=== PATIENT | female | born 1960 | race Caucasian/White ===

== ENCOUNTER 2023-04-15 17:15 | Inpatient (IN) | payer OTHER, SELFPAY ==
[2023-04-15] VITALS (32 sets, daily range): BP systolic 147–177; BP diastolic 60–88; PULSE 93–106; RESP 19–35; TEMP 36.2–36.6; O2SAT 94–98
--- NOTE | ~2023-04-15 | CT_ITS ---
EXAMINATION: CTA brain carotid DATE: 04/17/2023 10:51 INDICATION: Left-sided weakness TECHNIQUE: Computed tomographic angiography (CTA) of the head was performed without and with 100 mL O mnipaque-350 intravenous contrast. CTA of the neck was performed with intravenous contrast. The dose- length product was 1751.82 mGy-cm. Maximum intensity projection and volume rendered 3D-reconstruction s were created by the technologist on a separate workstation. Automated exposure control and iterativ e reconstruction technique were employed. COMPARISON: 04/15/2023; MRI, 04/16/2023 FINDINGS: HEAD CTA: There is no intracranial hemorrhage, acute infarction, or abnormal mass lesion. Punctate fo ci of restricted diffusion seen on the comparison MRI are not well demonstrated. There is an old infa rct of the left caudate. The ventricles are normal. There is no abnormal mass effect or midline shift . The dubose-white matter differentiation is normal. The basal cisterns are patent. The orbits are norm al. The paranasal sinuses, mastoids and calvarium are normal. A focal calcification is noted in the r ight basal ganglia. There is no significant stenosis of the basilar artery or posterior cerebral arteries. There is no si gnificant stenosis of the intracranial internal carotid arteries or the anterior or middle cerebral a rteries. The anterior communicating artery and posterior communicating arteries are normal. There is no aneurysm. NECK CTA: The thyroid gland is unremarkable. The submandibular and parotid glands are symmetric. Ther e is no lymphadenopathy. There are no masses identified. The airway is unremarkable. The superior med iastinum is unremarkable. There is mild cervical spondylosis. Soft tissue gas is noted in the left sh oulder musculature, discussed in further detail on shoulder CT. There is 0% stenosis of the proximal right internal carotid artery relative to normal distal artery l umen diameter (NASCET criteria). There is 0% stenosis of the proximal left internal carotid artery re lative to normal distal artery lumen diameter. IMPRESSION: 1. No acute intracranial abnormality. Normal head CTA. 2. 0% stenosis of the proximal right internal carotid artery relative to normal distal artery lumen d iameter (NASCET criteria). 3. 0% stenosis of the proximal left internal carotid artery relative to normal distal artery lumen di ameter. Reviewed, dictated and finalized at location F. UCTION ESTIMATOR IMPRESSION: 1. No acute intracranial abnormality. Normal head CTA. 2. 0% stenosis of the proximal right internal carotid artery relative to normal distal artery lumen diameter (NASCET criteria). 3. 0% stenosis of the proximal left internal carotid artery relative to normal distal artery lumen diameter.
--- NOTE | ~2023-04-15 | US_ITS ---
EXAMINATION: US shoulder asp inj w image LT DATE: 04/16/2023 18:57 INDICATION: Bacteremia and suspected left shoulder septic arthritis TECHNIQUE: The procedure including the risks and benefits was discussed with the patient. Risks discu ssed included bleeding, allergic reaction and infection. The patient understood the risks and agreed to proceed. The skin overlying the posterior left shoulder was prepped and draped in usual sterile f ashion. Anesthetic was administered with 1% lidocaine subcutaneously. An 20 gauge spinal needle was advanced under continuous ultrasound observation into the minimal amount of fluid in the posterior r ecess of the glenohumeral joint. 0.5 mm of opaque purulent appearing reddish-nicole fluid was aspirated and sent to the lab for Gram stain and cultures. Post procedure ultrasound demonstrated no hemorrha ge. There was insufficient fluid within the joint space to allow for the initially planned drainage c atheter placement. FINDINGS: Ultrasound images demonstrate the needle within a very small left glenohumeral joint effusi on. There is prominent edema in the surrounding soft tissues. IMPRESSION: 1. Successful Ultrasound-guided aspiration of a 1.5 mL of bloody purulent appearing fluid concerning for septic arthritis which was sent to the lab for Gram stain and cultures. Reviewed, dictated and finalized at location A. MOTIVE DIAGNOSTIC TECHNICIAN IMPRESSION: 1. Successful Ultrasound-guided aspiration of a 1.5 mL of bloody purulent appea ring fluid concerning for septic arthritis which was sent to the lab for Gram s tain and cultures.
--- NOTE | ~2023-04-15 | CT_ITS ---
EXAMINATION: CT abdomen pelvis w con DATE: 04/15/2023 20:15 INDICATION: UTI, leukocytosis, sepsis TECHNIQUE: Computed tomography (CT) of the abdomen and pelvis was performed with 100 mL Omnipaque-350 intravenous contrast. Automated exposure control and iterative reconstruction technique were employe d. The dose-length product was 1684.23 mGy-cm. COMPARISON: None. FINDINGS: Lower thorax: Cardiomegaly. Mitral calcification. Bibasilar scar/atelectasis. Liver: Hepatomegaly. Biliary/Gallbladder: Gallbladder is absent. No bile duct dilation. Pancreas: Mild fatty atrophy. Spleen: Normal. Adrenals:No mass. Kidneys: No suspicious mass, obstructing stone, or hydronephrosis. GI tract: Mild antral wall edema. No small or large bowel dilation. Normal appendix. Diverticulosis w ithout diverticulitis. Mesentery/Peritoneum: No ascites, mass, or free air. Retroperitoneum: No mass. Pelvis: Normal uterus. Mild urinary bladder wall thickening in a partially distended bladder. Small f luid collection at the distal urethra may represent urine leakage or small urethral diverticulum, alt mary it does not appearing capsulated. Soft Tissues: Moderate, inflamed fat-containing infraumbilical ventral abdominal wall hernia. Bones: No acute osseous finding. IMPRESSION: Mild antral gastritis. Hepatomegaly. Possible cystitis. Inflamed fat-containing infraumbilical ventral hernia. Reviewed, dictated and finalized at location K. RANCE CLAIMS CLERK
--- NOTE | ~2023-04-15 | CT_ITS ---
EXAMINATION: CT shoulder LT wo con INDICATION: Edema and cellulitis of the left shoulder TECHNIQUE: Computed tomographic images of the abdomen and pelvis were obtained after the administrati on of 100 cc of Omnipaque 350 intravenous contrast. The dose-length product (DLP) was 475.90 mGy-cm. Automated exposure control and iterative reconstruction technique were employed. COMPARISON: None FINDINGS: Bone alignment is normal. There is no fracture. 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 There is widespread soft tiss ue gas in the subscapular region, the deltoid, the pectoralis, and tracking into the partially imaged bicep. IMPRESSION: 1. Findings concerning for intramuscular abscesses involving the left shoulder musculature as detaile d above, likely spreading from septic joint. Reviewed, dictated and finalized at location F. ER CARE CASE MANAGER IMPRESSION: 1. Findings concerning for intramuscular abscesses involving the left shoulder musculature as detailed above, likely spreading from septic joint.
--- NOTE | ~2023-04-15 | US_ITS ---
EXAMINATION: US venous doppler UE DATE: 04/15/2023 19:51 INDICATION: edema, erythema . TECHNIQUE: Grayscale ultrasound images without and with compression and Doppler ultrasound images of the upper extremity veins were obtained. COMPARISON: None. FINDINGS: The visualized portions of the left internal jugular vein, subclavian vein, axillary vein, brachial v eins, basilic vein, and cephalic vein are patent. The left radial and ulnar veins were not visualized . IMPRESSION: The left radial and ulnar veins were not visualized No deep venous thrombosis in the remaining visualized left upper extremity veins. Reviewed, dictated and finalized at location K. DRESSER IMPRESSION: The left radial and ulnar veins were not visualized No deep venous thrombosis in the remaining visualized left upper extremity vein s.
--- NOTE | ~2023-04-15 | MR_ITS ---
EXAMINATION: MR cervical spine wo/w con DATE: 04/16/2023 17:04 INDICATION: Left-sided weakness TECHNIQUE: Magnetic resonance imaging (MRI) of the cervical spine was performed without and with 20 m L Multihance intravenous contrast. Sequences included sagittal T2-weighted FSE, sagittal T2-weighted FS FSE, sagittal T1-weighted FSE, axial T2-weighted FSE, and axial T1-weighted SE. Postcontrast seque nces included sagittal T1-weighted FS FSE, and axial T1-weighted FS SE. Additional coronal T2-weighte d FS FSE was obtained with the [id number] shifted further towards the left shoulder. COMPARISON: None FINDINGS: There is some motion artifact on multiple sequences which moderately limits evaluation. Straightening of the normal cervical lordosis. Vertebral body heights are normal. There is mild disc height loss a t C3-C4 and moderate disc height loss at C4-C5 and C5-C6. Bone marrow signal intensity in the cervic al spine is normal. Cord signal intensity is normal. No abnormally enhancing spinal lesions. The foll owing disc levels are specifically discussed: C2-C3: The disc does not extend beyond the endplate margin. There is no uncovertebral joint osteoarth ritis. There is mild bilateral facet joint osteoarthritis. There is no neural foraminal stenosis. The re is no central canal stenosis. C3-C4: Disc is bulging. There is mild bilateral uncovertebral joint osteoarthritis. There is mild joseph ateral facet joint osteoarthritis. There is no neural foraminal stenosis. There is mild central canal stenosis with flattening of the ventral surface of the cord. C4-C5: Disc is bulging. There is moderate left and severe right uncovertebral joint osteoarthritis. T here is moderate bilateral facet joint osteoarthritis. There is mild bilateral neural foraminal steno sis. There is mild central canal stenosis with flattening of the ventral surface of the cord. C5-C6: Disc is bulging. There is moderate bilateral uncovertebral joint osteoarthritis. There is mode rate bilateral facet joint osteoarthritis. There is mild left and moderate right neural foraminal radha nosis. There is mild central canal stenosis with flattening of the ventral surface of the cord. C6-C7: The disc does not extend beyond the endplate margin. There is no uncovertebral joint osteoarth ritis. There is mild to moderate bilateral facet joint osteoarthritis. There is no neural foraminal s tenosis. There is no central canal stenosis. C7-T1: The disc does not extend beyond the endplate margin. There is no uncovertebral joint osteoarth ritis. There is moderate bilateral facet joint osteoarthritis. There is mild left neural foraminal st enosis. There is no central canal stenosis. In the limited visualization of the left shoulder there is prominent increased fluid signal throughou t the musculature of the left shoulder girdle suspicious for myositis. There are more focal small per ipherally enhancing fluid collections within the deep aspect of the subscapularis muscle belly along the anterior margin of the scapula suspicious for intramuscular abscesses. On the larger [id number] images there is a small left glenohumeral joint effusion suspicious for septic arthritis. There is some nonspecific patchy increased T2 signal within the proximal humerus which most likely reactive al though could not absolutely exclude developing osteomyelitis although no evident cortical erosions ar e identified. IMPRESSION: 1. Evaluation of the cervical spine moderately limited by motion artifact on multiple sequences. 2. Moderate cervical spondylosis with no abnormally enhancing lesions in the cervical spinal cord. 3. Findings of the left shoulder is not diagnostically evaluated but which include suspicion for sept ic arthritis and extensive surrounding myositis of the shoulder girdle including likely intramuscular abscesses within the deep subscapularis muscle.
--- NOTE | ~2023-04-15 | US_ITS ---
EXAMINATION: US venous doppler UE DATE: 04/21/2023 16:01 INDICATION: Left upper extremity edema TECHNIQUE: Laguerre scale images with and without compression and Doppler images of the left upper extrem ity veins were obtained. COMPARISON: None. FINDINGS: The left internal jugular vein, subclavian vein, axillary vein, brachial veins, cephalic vein, radial vein, and ulnar vein are patent. There is superficial venous thrombosis of the distal aspect of the left basilic vein. IMPRESSION: 1. Superficial venous thrombosis of the left basilic vein. Reviewed, dictated and finalized at location B. ER BAKER
--- NOTE | ~2023-04-15 | MR_ITS ---
EXAMINATION: MR brain/brain stem wo/w con DATE: 04/16/2023 17:04 INDICATION: left sidede weakness TECHNIQUE: Magnetic resonance imaging (MRI) of the brain and brainstem was performed without intraven ous contrast. Sequences included sagittal and axial T1-weighted SE, axial diffusion-weighted FS EPI A SSET, axial T2*-weighted GRE, axial T2-weighted FLAIR Propeller, and axial T2-weighted Propeller. Pos tcontrast axial and coronal T1-weighted SE was obtained. Apparent diffusion coefficient (ADC) maps we re created. COMPARISON: None. FINDINGS: Scattered punctate foci of restricted diffusion involving subcortical white matter and cortex in the bilateral frontal lobes, the left external capsule, and right parietal cortex. No MRI evidence of hem orrhage or extra-axial collection. Focal susceptibility artifact in the right basal ganglia correlati ng with calcifications in the prior CT. Punctate susceptibility artifact in the right parietal lobe m ay represent prior microhemorrhage or early calcification.. Scattered foci of white matter hyperinten sity, likely representing mild small vessel ischemic disease. No evidence of advanced or lobar predom inant parenchymal volume loss. The basilar cisterns are patent. Flow voids are preserved. Paranasal s inuses are within normal limits. Globes and orbital contents are within normal limits. Postcontrast i mages are limited by motion but no definite abnormal enhancing lesions detected. IMPRESSION: Multifocal punctate areas of restricted diffusion likely representing focal infarcts, with embolic et iology. Reviewed, dictated and finalized at location K. STILL RUNNER COMPOUNDER IMPRESSION: Multifocal punctate areas of restricted diffusion likely representing focal inf arcts, with embolic etiology.
--- NOTE | ~2023-04-15 | CT_ITS ---
EXAMINATION: CT brain wo con DATE: 04/15/2023 19:02 INDICATION: AMS . TECHNIQUE: Computed tomography (CT) of the head was performed without intravenous contrast. The mA wa s adjusted according to patient size. Iterative reconstruction technique was employed. The dose-lengt h product was 605.33 mGy-cm. COMPARISON: None. FINDINGS: No acute intracranial hemorrhage or extra-axial fluid collection. No hydrocephalus, mass, or herniation. No acute ischemic infarct. Unremarkable dural venous sinus attenuation. No acute osseous abnormality. The aerated spaces are clear. Right basal ganglia calcification. Prominent bifrontal extra-axial spaces IMPRESSION: No acute intracranial process. Reviewed, dictated and finalized at location K. P BURNER
--- NOTE | ~2023-04-15 | XR_ITS ---
EXAMINATION: XR chest 2V Exam Date/Time: 04/15/2023 19:54 TURBINE ENGINEER HISTORY: leukocytosis; non smoker, DM Comparison: 01/10/2007. RESULT: Lines, tubes, and devices: None. Lungs and pleura: Clear. Cardiomediastinal silhouette: Stable. Other: No acute osseous or upper abdominal finding. IMPRESSION: No acute cardiopulmonary process. Reviewed, dictated and finalized at location K. INE ENGINEER
[2023-04-15 17:32] LABS: Glucose Point of Care > 500 mg/dl (65-105)
[2023-04-15 18:02] LABS: Hematocrit 35.1 % (37.0-47.0); Hemoglobin 11.9 g/dL (12.0-15.0); Mean Corpuscular HGB Conc 33.9 g/dl (32-36); Mean Corpuscular Hemoglobin 29.4 pg (26-34); Mean Corpuscular Volume 86.7 fl (80-100); Mean Platelet Volume 11.2 fl (7.4-10.4); Platelet Count Result 424 k/mm3 (150-375); Red Blood Count 4.05 M/mm3 (4.2-5.4); White Blood Count 22.3 K/mm3 (4.5-10.0)
[2023-04-15 18:12] LABS: Lactic Acid Reflex 2.6 mmol/L (0.7-2.0)
[2023-04-15 18:19] LABS: Beta-Hydroxybutyrate/Acetoacetate 3.53 mmol/L (0.02-0.27)
[2023-04-15 18:22] LABS: Band Neutrophils Percent 17 % (0-6); Lymphocytes Absolute Manual 1.11 K/mm3 (1.1-4.5); Lymphocytes Percent Manual 5 % (18-44); Metamyelocytes Percent 1 %; Monocytes Absolute Manual 0.44 K/mm3 (0.1-0.90); Monocytes Percent Manual 2 % (3-9); Myelocytes Percent 1 %; Neutrophils Absolute Manual 20.29 K/mm3 (1.7-7.2); Neutrophils Percent Manual 74 % (46-73); Platelet Estimate Increased (Adequate); Total Cells Counted 100
[2023-04-15 18:23] LABS: Schistocytes None Seen (NORMAL)
[2023-04-15] MEDS: SODIUM CHLORIDE 0.9% IV 1,000 ML 999 ML IV CONT ×2 (18:29→20:22)
--- NOTE | 2023-04-15 18:30 | ED.WEAKNESS ---
HPI - Weakness General Chief complaint: Weakness Stated complaint: mult complaints Time Seen by Provider: 04/15/23 17:45 Source: patient and EMS Mode of arrival: EMS Limitations: no limitations History of Present Illness HPI Narrative: This is a 62 year old female that presents to the ER for generalized weakness. Worsening over the last several weeks. Associated with focal left foot weakness. Reports she feels like her foot gives out on her when she walks. Reports she has noted redness and swelling of her left upper arm. She has been taking Ibuprofen for this. Reports no past medical history, although she has not been to the doctor in about 9 years. Does report family history of diabetes. Reports hematuria. Denies fever, abdominal pain, vomiting or dysuria. Related Data Allergies Allergy/AdvReac Type Severity Reaction Status Date / Time No Known Allergies Allergy Unverified 04/15/23 17:27 Review of Systems Review of Systems: CONSTITUTIONAL: Denies fever EYES: Denies visual changes CARDIOVASCULAR: Denies chest pain RESPIRATORY: Denies cough or dyspnea. GASTROINTESTINAL: Denies abdominal pain, nausea, vomiting GENITOURINARY: Denies dysuria. Reports hematuria. NEUROLOGIC: Reports weakness. All systems reviewed & are unremarkable except as noted in HPI and below PMFSH Social History Social History (Updated 04/15/23 @ 18:57 by Luna Pelletier PA-C) Smoking status: Never smoker Exam Narrative: GENERAL: Ill-appearing, well-nourished, and in no acute distress. HEAD: Normocephalic, atraumatic. EYES: PERRLA and EOMI. ENT: Nares clear, no rhinorrhea or epistaxis. Mucous membranes moist. Oropharynx without tonsillar hypertrophy exudate or other lesions. Bilateral TMs pearly dubose non-bulging NECK: Supple. No adenopathy or masses. CHEST: Clear to auscultation. No respiratory distress. No wheezes rales or rhonchi HEART: Regular rate and rhythm. No murmur heard. Normal peripheral pulses. ABDOMEN: Soft, nontender, nondistended, normal active bowel sounds. EXTREMITIES: Normal range of motion. No edema. Strength equal in bilateral upper extremities (5/5). Strength decreased in left foot plantar flexion (4/5), otherwise strength is equal in bilateral lower extremities (5/5) SKIN: Warm, dry, no rash. NEURO: No focal deficits. Alert and oriented x3. Cranial nerves 2-12 grossly intact PSYCH: Normal mood and affect Course Course Emergency Course: Patient and family updated on workup and need for admission Consultations Consultation #1: Spoke with hospitalist about patient and workup who accepts admission. Patient will go to the IMU Date: 04/15/23 Vital Signs Vital signs: Vital Signs Temperature 97.9 F 04/15/23 17:16 Pulse Rate 106 H 04/15/23 17:16 Respiratory Rate 30 H 04/15/23 17:16 Blood Pressure 147/66 H 04/15/23 17:16 Pulse Oximetry 98 04/15/23 17:16 Oxygen Delivery Room Air 04/15/23 17:16 Temperature 97.9 F 04/15/23 17:16 Pulse Rate 98 04/15/23 20:25 Respiratory Rate 31 H 04/15/23 20:25 Blood Pressure 161/72 H 04/15/23 20:25 Pulse Oximetry 96 04/15/23 20:25 Oxygen Delivery Room Air 04/15/23 17:16 MDM - Weakness MDM Narrative Medical decision making narrative: Patient presents to the ER for generalized weakness. Reporting redness and swelling of the left upper arm, hematuria, left foot weakness. Reporting recent weight loss. Family history of DM. Patient had not been to the doctor in about 9 years. Blood sugar >500 on arrival. Hemoglobin A1C 11.2. CBC with leukocytosis to 22.3 with band neutrophils. Metabolic panel with blood glucose of 618. Anion gap of 19, bicarb of 19. Beta hydroxybutyrate is 3.53. ABG with pH of 7.46, pCO2 of 32 and PO2 of 58.5. UA without evidence of infection. This will be sent for culture. Blood cultures drawn and patient started on IV antibiotics. CT scan abdomen and pelvis shows findings consistent with cystitis. Chest x-ray without acute ca
[2023-04-15 18:33] LABS: Alveolar/Arterial O2 Gradient 52.9 mmHg; Base Excess ABG -0.8 mEq/l (+/-2.0); Carboxyhemoglobin 1.2 % THb (0-2.0); Fractional Inspired Oxygen 21 %; HCO3 ABG 22.2 mEq/l (22.0-26.0); Methemoglobin ABG 0.1 %THb (0-1.5); Oxygen Content ABG 16.8 %vol (16.0-22.0); Oxyhemoglobin 90.3 % THb (90.0-100.0); PO2 ABG 58.5 mmHg (80.0-100.0); PO2 FiO2 Ratio Arterial Blood 2.79 %; Reduced Hemoglobin 8.4 %THb (0-5.0); Total Hemoglobin 13.2 g/dL (12.0-18.0)
[2023-04-15 18:36] LABS: Modified Allen's Test Pass; Site Drawn RIGHT RADIAL
[2023-04-15 18:37] LABS: Erythrocyte Sedimentation Rate 56 mm/hr (0-20)
[2023-04-15 18:41] LABS: Add Urine Microscopic? YES; Appearance Urine Cloudy (Clear); Bacteria Urine 1+ /hpf; Bilirubin Urine Negative (Negative); Blood Urine 3+ (Negative); Color Urine Yellow (Yellow); Glucose Urine UA 3+ mg/dL (Negative); Ketones Urine 1+ mg/dL (Negative); Leukocyte Esterase Ur 2+ LEU/UL (Negative); Need Manual Microscopic Reviewed; Nitrate Urine Negative (Negative); Non Pathogenic Casts 0-2; Protein Urine 1+ mg/dL (Negative); RBC Urine >100 /hpf (0-2); Specific Grav Ur 1.028 (1.001-1.035); Squamous Epithelial Cell Urine Occasional /hpf (Few); WBC Urine >100 /hpf; pH Urine 5.5 (5.0-9.0)
[2023-04-15 18:45] LABS: Alanine Aminotransferase 20 U/L (6-35); Albumin Level 2.9 g/dL (3.5-5.1); Alkaline Phosphatase 239 U/L (38-126); Anion Gap 19 mmol/L (8-16); Aspartate Amino Transferase 29 U/L (14-36); Bilirubin,Total 1.6 mg/dL (0.2-1.3); Blood Urea Nitrogen 38 mg/dL (7-17); Calcium 8.8 mg/dL (8.4-10.2); Carbon Dioxide 19 mmol/L (22-30); Chloride 86 mmol/L (98-107); Estimated CRCL calculation 61 ml/min; Estimated Glomerular Filt Rate 57; Glucose 618 mg/dL (65-110); Lipase 43 U/L (23-300); Magnesium 2.4 mg/dL (1.6-2.3); Phosphorus 3.4 mg/dL (2.5-4.5); Potassium 3.6 mmol/L (3.4-5.0); Sodium 124 mmol/L (137-145)
[2023-04-15] MEDS: INSULIN HUMAN REGULAR (*BKC) 100 UNITS/ML 14 UNITS IV PUSH (19:05)
[2023-04-15 19:22] LABS: CRP 35.3 mg/dL (<1.0)
[2023-04-15 19:53] LABS: Hemoglobin A1C 11.2 % (<5.7)
--- NOTE | 2023-04-15 20:10 | PC.NURSE ---
antibiotic administration delayed due to pt being out of room for imaging.
[2023-04-15 20:19] LABS: Glucose Point of Care 449 mg/dl (65-105)
[2023-04-15 20:59] LABS: Reflex Lactic Acid Yes or No Add Lactic
[2023-04-15 21:23] LABS: Lactic Acid 2.3 mmol/L (0.7-2.0)
[2023-04-15 21:37] LABS: Alanine Aminotransferase 19 U/L (6-35); Albumin Level 2.5 g/dL (3.5-5.1); Alkaline Phosphatase 189 U/L (38-126); Anion Gap 12 mmol/L (8-16); Aspartate Amino Transferase 25 U/L (14-36); Bilirubin,Total 1.3 mg/dL (0.2-1.3); Blood Urea Nitrogen 32 mg/dL (7-17); Carbon Dioxide 22 mmol/L (22-30); Chloride 93 mmol/L (98-107); Estimated CRCL calculation 67 ml/min; Estimated Glomerular Filt Rate > 60; Glucose 428 mg/dL (65-110); Potassium 3.1 mmol/L (3.4-5.0); Sodium 127 mmol/L (137-145)
--- NOTE | 2023-04-15 23:14 | ADMGEN ---
This patient, Cami Tapia, was admitted to IMU Room 213-01 on 04/15/2023 at 2300. Patient/family oriented to hospital policies and general routines including ID bracelet, bed and alarms, visiting hours, pain management, procedures, bathroom and other care routines, personal items, smoking policy, room service/diet, and visiting hours. Information on how to activate the Rapid Response Team has been discussed. Patient/Family are encouraged to report perceived risks to care and to ask questions if they do not understand what they are told or what they should do.
[2023-04-15 23:37] LABS: Glucose Point of Care 399 mg/dl (65-105)
[2023-04-16] VITALS (16 sets, daily range): BP systolic 154–179; BP diastolic 69–74; PULSE 69–100; RESP 20–22; TEMP 36.2–36.6; O2SAT 94–97
[2023-04-16] MEDS: SODIUM CHLORIDE 0.9% IV 1,000 ML 125 ML IV CONT ×3 (00:26→14:29)
[2023-04-16] MEDS: INSULIN GLARGINE (*BKC) 100 UNITS/ML 33 UNITS SUB-Q (01:30)
[2023-04-16] MEDS: POTASSIUM CHLORIDE INJ 40 MEQ in SODIUM CHLORIDE 0.9% IV 500 ML 130 MEQ IVPB (01:30)
[2023-04-16] MEDS: traMADol HCL (*CRX) 50 MG TABLET PO (01:30)
[2023-04-16 05:24] LABS: Glucose Point of Care 417 mg/dl (65-105)
[2023-04-16] MEDS: INSULIN HUMAN REGULAR (*BKC) 100 UNITS/ML 14 UNITS SUB-Q (06:00)
[2023-04-16 07:48] LABS: Hematocrit 32.8 % (37.0-47.0); Hemoglobin 11.4 g/dL (12.0-15.0); Mean Corpuscular HGB Conc 34.8 g/dl (32-36); Mean Corpuscular Hemoglobin 30.1 pg (26-34); Mean Corpuscular Volume 86.5 fl (80-100); Platelet Count Result 388 k/mm3 (150-375); Red Blood Count 3.79 M/mm3 (4.2-5.4); Red Cell Distribution Width 14.1 % (11.5-14.5); White Blood Count 18.6 K/mm3 (4.5-10.0)
[2023-04-16 07:58] LABS: Anion Gap 10 mmol/L (8-16); Blood Urea Nitrogen 32 mg/dL (7-17); Calcium 8.2 mg/dL (8.4-10.2); Carbon Dioxide 23 mmol/L (22-30); Chloride 96 mmol/L (98-107); Estimated CRCL calculation 78 ml/min; Estimated Glomerular Filt Rate > 60; Glucose 380 mg/dL (65-110); Magnesium 2.4 mg/dL (1.6-2.3); Potassium 3.5 mmol/L (3.4-5.0); Sodium 129 mmol/L (137-145)
[2023-04-16 08:19] LABS: Glucose Point of Care 363 mg/dl (65-105)
[2023-04-16] MEDS: INSULIN ASPART (*BKC) 100 UNITS/ML SUB-Q ×4 (08:21→18:53)
[2023-04-16] MEDS: VANCOMYCIN 1,250 MG/NS 250 ML 1,250 MG/250 ML BAG 166.67 MG IVPB ×2 (10:44→14:30)
[2023-04-16 11:56] LABS: Glucose Point of Care 324 mg/dl (65-105)
--- NOTE | 2023-04-16 13:00 | PM.IMHP ---
H&P: HPI History of Present Illness Date/Time: 04/16/23 13:00 Chief Complaint: Weakness Narrative: 62yo healthy female who presents with complaints of weakness. Patient was in her normal state health until about 6 weeks ago when she had an episode difficulty walking, urine incontinence and strong smell urine. Symptoms resolved has been states patient still having some difficulty walking although improved overall. Over the past few days patient has had increasing symptoms again with bilateral lower extremity weakness worse on the left. She is having difficulty standing. She denies dysuria but was having hematuria. She mentions hematuria is been intermittent over the past few weeks. No diarrhea, nausea or vomiting. She denies abdominal pain or back pain. She did have a flu and COVID vaccine 2-3 weeks ago. No history of seizures, strokes, coronary disease or CHF. No hypertension or hyperlipidemia. No fever or chills. No chest pain or palpitations. No melena or hematochezia. No blurry vision or double vision. No odynophagia or dysphagia. She denies cough or shortness of breath. She does admit to early satiety and poor appetite. She states that she has lost a total of 130 lb since COVID started with losing 40 lb since May. She has not seen a physician since 2013. She denies numbness or tingling in her extremities. No sciatica symptoms. No history of diabetes. Mota she does have a family history of diabetes in her father. About 10 days ago she noted left upper arm ?throbbing? and noted erythema. There was no trauma or animal bites to this area. She did also have a red splotchy rash on her legs on admission but this has resolved. She mentions that she has high blood pressure that was diagnosed as ?white coat syndrome?. She denies any other symptoms. Because of the weakness that progressively worsened to the point where had difficulty getting her to stand, patient was brought to the emergency room for evaluation. In the emergency room, she was mildly tachycardic and tachypneic. Lactic acid was 2.6. test was negative. Head CT showed no acute findings. She did have right basal ganglia calcifications. Left upper extremity venous Dopplers were negative for DVT. Chest x-ray was clear. CT of the abdomen and pelvis showed mild antral gastritis, hepatomegaly, possible cystitis and inflamed fat containing infraumbilical Ventral hernia. UA was consistent with UTI. Urine cultures pending. Blood cultures collected and both have returned positive. ABG 7.46/32/59 on room air. White count was 22 K with 17% bands. Glucose was 618. Sodium 124. A1c is 11.2. LFTs elevated in the form of a bilirubin of 1.6 and alk-phos 239. She is status post cholecystectomy. Liver enzymes are improved. Anion gap is closed. She was treated with IV insulin and IV fluids. She was started on Rocephin. She was given tramadol. She was admitted for further care. Antibiotics were adjusted when blood cultures became positive. Review of Systems Review of Systems: All systems reviewed & are unremarkable except as noted in HPI and below PMFSH Past Medical History Medical History (Updated 04/16/23 @ 13:52 by Pb Matamoros MD) No pertinent past medical history Surgical History Surgical History (Updated 04/16/23 @ 13:17 by Pb Matamoros MD) S/P cholecystectomy Family History Family History Father Diabetes mellitus COPD (chronic obstructive pulmonary disease) Hypertension Mother H/O: hysterectomy Social History Social History (Updated 04/16/23 @ 13:18 by Pb Matamoros MD) Social History: Remote tobacco use history. She drinks 2-3 alcoholic drinks per month. She has dogs at home. Denies history of drug use. Full code. She nominates her to be the individual would make medical decisions for her if she is unable. Smoking packs per day: 0.5
[2023-04-16] MEDS: ASPIRIN 81 MG CHEWABLE TABLET PO (14:29)
[2023-04-16] MEDS: amLODIPine BESYLATE 2.5 MG TABLET PO (14:32)
--- NOTE | 2023-04-16 14:55 | PCCDE ---
Consult received 04/15; pt admitted 04/16 with new onset DM, UTI/cellulitis, septicemia. Ortho and neuro consults pending. Met with pt briefly; pt very tired and sts is about to have MRI. Provided diabetes book. Pt sts family hx of DM in her father. Admits to hyperglycemia sx of polyuria, polydypsia and fatigue. H&P shows pt has lost 140# since Covid. Will f/up on Friday after Thanksgiving when pt hopefully feeling better and spouse can be here.
[2023-04-16 19:13] LABS: Glucose Point of Care 352 mg/dl (65-105)
[2023-04-16 20:19] LABS: INR 1.1; Prothrombin Time 14.8 Seconds (11.1-14.7)
[2023-04-16] MEDS: cefTRIAXone 2 GM/NS 100 ML 2 GM/100 ML BAG IVPB (20:22)
[2023-04-16] MEDS: INSULIN GLARGINE (*BKC) 100 UNITS/ML 45 UNITS SUB-Q (20:32)
[2023-04-16 20:36] LABS: Glucose Point of Care 356 mg/dl (65-105)
[2023-04-17] VITALS (19 sets, daily range): BP systolic 168–203; BP diastolic 77–96; PULSE 76–97; RESP 16–22; TEMP 36.2–36.6; O2SAT 95–100
--- NOTE | 2023-04-17 00:32 | PC.NURSE ---
[facility] States she has been through enough for one day and hopefully will feel better tomorrow after some antibiotics. States she will go tomorrow.
[2023-04-17] MEDS: SODIUM CHLORIDE 0.9% IV 1,000 ML 125 ML IV CONT (03:16)
[2023-04-17] MEDS: hydrALAZINE HCL 20 MG/ML VIAL 10 MG IV PUSH (04:18)
[2023-04-17 05:34] LABS: Hemoglobin 11.1 g/dL (12.0-15.0); Mean Corpuscular HGB Conc 34.7 g/dl (32-36); Mean Corpuscular Hemoglobin 29.1 pg (26-34); Mean Platelet Volume 10.7 fl (7.4-10.4); Platelet Count Result 363 k/mm3 (150-375); Red Blood Count 3.81 M/mm3 (4.2-5.4); Red Cell Distribution Width 13.8 % (11.5-14.5); White Blood Count 16.6 K/mm3 (4.5-10.0)
[2023-04-17 05:44] LABS: Alanine Aminotransferase 17 U/L (6-35); Albumin Level 2.4 g/dL (3.5-5.1); Alkaline Phosphatase 146 U/L (38-126); Anion Gap 9 mmol/L (8-16); Aspartate Amino Transferase 26 U/L (14-36); Bilirubin,Total 0.9 mg/dL (0.2-1.3); Blood Urea Nitrogen 21 mg/dL (7-17); Carbon Dioxide 21 mmol/L (22-30); Chloride 99 mmol/L (98-107); Cholesterol 200 mg/dL (0-200); Estimated CRCL calculation 122 ml/min; Estimated Glomerular Filt Rate > 60; Glucose 308 mg/dL (65-110); HDL Direct 16 mg/dL; Magnesium 2.2 mg/dL (1.6-2.3); Phosphorus 2.4 mg/dL (2.5-4.5); Potassium 3.1 mmol/L (3.4-5.0); Sodium 129 mmol/L (137-145); Triglycerides 461 mg/dL (<150)
[2023-04-17 05:47] LABS: Lactic Acid Reflex 1.2 mmol/L (0.7-2.0)
[2023-04-17 05:53] LABS: LDL Cholesterol Direct 47 mg/dL
--- NOTE | 2023-04-17 06:15 | PC.NURSE ---
PRN hydralazine administered as ordered for bp 203/91. FU bp 192/96. Order received for one time dose of lopressor 5mg IVP.
[2023-04-17] MEDS: METOPROLOL TARTRATE INJ 5 MG/5 ML VIAL IV PUSH (06:21)
[2023-04-17 06:37] LABS: Band Neutrophils Percent 23 % (0-6); Hypochromasia 1+ (NORMAL); Lymphocytes Absolute Manual 1.99 K/mm3 (1.1-4.5); Monocytes Absolute Manual 0.83 K/mm3 (0.1-0.90); Monocytes Percent Manual 5 % (3-9); Neutrophils Absolute Manual 13.77 K/mm3 (1.7-7.2); Neutrophils Percent Manual 60 % (46-73); Schistocytes None Seen (NORMAL); Total Cells Counted 100
[2023-04-17 06:57] LABS: Folic Acid 4.3 ng/mL (2.76->20); Vitamin B12 > 1000.0 pg/mL (239-931)
--- NOTE | 2023-04-17 07:06 | PC.NURSE ---
F/U BP 172/85, pulse 76
[2023-04-17 08:23] LABS: Glucose Point of Care 280 mg/dl (65-105)
[2023-04-17] MEDS: amLODIPine BESYLATE 5 MG TABLET 10 MG PO (09:09)
[2023-04-17] MEDS: INSULIN ASPART (*BKC) 100 UNITS/ML SUB-Q ×6 (09:10→17:54)
[2023-04-17] MEDS: ASPIRIN 81 MG CHEWABLE TABLET PO (09:10)
[2023-04-17] MEDS: POTASSIUM CHLORIDE 20 MEQ ER TABLET 40 MEQ PO (09:10)
--- NOTE | 2023-04-17 10:25 | PM.CNCAR ---
Assessment and Plan Assessment and plan (1) Sepsis: Qualifiers: Sepsis acute organ dysfunction status: with acute organ dysfunction Sepsis type: sepsis due to unspecified organism Severe sepsis acute organ dysfunction type: encephalopathy Severe sepsis shock status: without septic shock Qualified Code(s): A41.9 - Sepsis, unspecified organism; R65.20 - Severe sepsis without septic shock; G93.41 - Metabolic encephalopathy Code(s): A41.9 - Sepsis, unspecified organism Status: Acute (2) Bacteremia: Code(s): R78.81 - Bacteremia Status: Acute Plan Has bacteremia + brain MRI shows multifocal punctate areas of restricted diffusion likely representing focal infarcts, with embolic etiology. Appropriate indication for CHRISTOPHER to evaluate for infective endocarditis and to rule out intracardiac thrombus. Discussed the procedure with the patient, including indication for procedure, procedure details, risks vs benefits. Patient is agreeable to proceed. Will make patient NPO at midnight and plan for CHRISTOPHER on Wednesday 04/18. Recommendations/Plan discussed with Hospitalist, Dr. Matamoros. History of Present Illness History of Present Illness Consult date/time: 04/17/23 10:25 Requesting physician: Pb Matamoros MD Consult reason: Other (CHRISTOPHER) Reason For Visit: New Onset Diabetes Mellitus/UTI/Cellulitis Narrative: We are consulted for CHRISTOPHER. This is a 62 year old female who initially presented with weakness and found with symptoms of sepsis. Blood cultures are positive for Group B streptococcus. There is concern for septic arthritis. In addition, her brain MRI shows multifocal punctate areas of restricted diffusion likely representing focal infarcts, with embolic etiology. Review of Systems Review of Systems: All systems reviewed & are unremarkable except as noted in HPI and below (HPI) [facility] Past Medical History Medical History No pertinent past medical history Surgical History Surgical History S/P cholecystectomy Family History Family History Father Diabetes mellitus COPD (chronic obstructive pulmonary disease) Hypertension Mother H/O: hysterectomy Social History Social History Social History: Remote tobacco use history. She drinks 2-3 alcoholic drinks per month. She has dogs at home. Denies history of drug use. Full code. She nominates her to be the individual would make medical decisions for her if she is unable. Smoking packs per day: 0.5 Smoking cigarettes per day: 10.0 Years smoked: 4 Smoking pack-years: 2.00 Smoking status: Former smoker Tobacco type: cigarettes Second hand tobacco smoke exposure: Yes Drinks per week: 2 Substance use: never Lack of Transportation: No Lack of Food: Never True Current Housing: I Have Housing Concerned About Future Housing: No Difficulty Paying Gas/Electric Bills: No Difficulty Paying for Meds: No Currently Unemployed: No Education: High School Diploma/GED Difficulty w/ Childcare or Family Care: No Spiritual care concerns: No Meds Home Medications and Allergies Home Medications Medication Instructions Recorded Confirmed Type No Home Medications 04/15/23 04/15/23 History Allergies Allergy/AdvReac Type Severity Reaction Status Date / Time No Known Allergies Allergy Unverified 04/15/23 17:27 Vital Signs Vital Signs - 24 hr 04/16/23 11:59 04/16/23 12:00 04/16/23 12:00 Temperature 36.2 C L Pulse Rate 69 69 100 Respiratory Rate 22 H 22 H Blood Pressure 178/71 H Pulse Oximetry 96 96 Oxygen Delivery Room Air 04/16/23 14:00 04/16/23 16:00 04/16/23 16:13 Temperature 36.5 C Pulse Rate 91 94 Respiratory Rate 20 Blood Pressure 179/73 H Pulse Oximetry 9
--- NOTE | 2023-04-17 10:39 | PM.IMPN ---
Progress Note: A&P Assessment and Plan (1) Septicemia: Code(s): A41.9 - Sepsis, unspecified organism Status: Acute Assessment and Plan: Patient presents with weakness and found to have symptoms of sepsis. Blood cultures have returned positive. Source most likely related to cellulitis but consider also from possible UTI. Given that she is bacteremic, I am concerned about septic arthritis to the left shoulder. On chest x-ray, the left shoulder joint space appears to be enlarged compared to the right. Will proceed with arthrocentesis. Ortho consult. BCx 04/15: Group B Strept in all 4 bottles. UCx 04/15: negative Started on Rocephin on admission and dose advanced to 2gm; Vancomycin added. White count is improving. Continue IV abx. Repeat BCx (2) CVA (cerebral vascular accident): Code(s): I63.9 - Cerebral infarction, unspecified Status: Acute Assessment and Plan: Patient with left-sided weakness. Concerning for CVA but we considered an inflammatory myelopathy given her recent vaccines. However family does state that she was having weakness 6 weeks ago which predates the vaccines CT head showing right basal ganglia calcification. ASA added. Brain MRI showing multifocal punctate area of restricted diffusion likely representing focal infarcts likely embolic. C-spine MRI pending. Neuro consulted. Cardiology consulted for possible CHRISTOPHER given concern for SBE. (3) Septic arthritis: Code(s): M00.9 - Pyogenic arthritis, unspecified Status: Acute Assessment and Plan: Patient underwent US guided aspiration of the left shoulder joint 04/16. Able to retrieve 1.5mL of bloody, purulent fluid concerning for septic arthritis. No lab work but gram stain positive for gram positive cocci in anaerobic culture. CT left shoulder showing tissue gas in the sub scapular region, the deltoid, the pectoralis, and tracking into the partially imaged biceps. Discussed the case with orthopedics who recommended transfer to a tertiary care center. Left UE doppler was negative for DVT Spoke with Dr. Marcus Wheat who graciously accepted the patient in transfer. Images copied underwent disc and chart will be copied as well. Patient informed of plan to transfer to tertiary care center. (4) Cellulitis: Qualifiers: Laterality: left Site of cellulitis: extremity Site of cellulitis of extremity: upper extremity Qualified Code(s): L03.114 - Cellulitis of left upper limb Code(s): L03.90 - Cellulitis, unspecified Status: Acute Assessment and Plan: Patient was the left upper arm cellulitis felt to be the source of her bacteremia. She denies that she received the vaccines in the left arm. Treatment as above. (5) Diabetes mellitus, new onset: Code(s): E11.9 - Type 2 diabetes mellitus without complications Status: Acute Assessment and Plan: A1c 11.2. Patient with newly diagnosed diabetes. She has had considerable weight loss with complaints of poor appetite and early satiety. Patient was treated with IV insulin and IV fluids. Her glucose has improved. She was started on Lantus which will continue. AccuCheks covering with sliding scale ordered. Hypoglycemia protocol will be available as needed. Advance lantus again. (6) Acute dehydration: Code(s): E86.0 - Dehydration Status: Acute Assessment and Plan: Related to the uncontrolled diabetes. Continue IV fluids. (7) Hyponatremia: Code(s): E87.1 - Hypo-osmolality and hyponatremia Status: Acute Assessment and Plan: Sodium 124 on admission related to the severe hyperglycemia. This has improved as her glucose has trended downward. Continue to follow. (8) Elevated blood pressure reading: Code(s): R03.0 - Elevated blood-pressure reading, without diagnosis of hypertension Status: Acute Assessment and Plan: Patient's blood pressure was noted to
--- NOTE | 2023-04-17 11:39 | PM.CNOR ---
Assessment and Plan Assessment and plan (1) Left shoulder pain: Qualifiers: Chronicity: acute Qualified Code(s): M25.512 - Pain in left shoulder Code(s): M25.512 - Pain in left shoulder Status: Acute Assessment and Plan: 62-year-old female with septic left shoulder. Radiology was able to aspirate some of the fluid so definitive cultures are pending but preliminary indicates strep species. Complicating all of this is the embolic brain issues resulting likely in her weakness and the uncontrolled diabetes. I think that definitive treatment for the shoulder will involve surgical debridement whether this is arthroscopic or open remains to be seen. For all these reasons I think that this patient would be best transferred to a tertiary center. Thank for the consult. History of Present Illness HPI Consult date: 04/17/23 Requesting physician: Pb Matamoros MD Chief complaint: New Onset Diabetes Mellitus/UTI/Cellulitis Narrative: 62-year-old female who I was asked see regarding her left shoulder. She states for the past several weeks she has had increasing pain in her left shoulder without any apparent injury. She has got a somewhat convoluted medical history. By report she had not been feeling well for quite some time. She has not been to see a medical doctor for close to a decade. She finally came to the emergency room and was admitted. During the workup it was determined that she has sepsis. She is currently being treated for a urinary tract infection but also has findings localized to the shoulder. Her shoulder is what she region was having trouble with. She was found to be in an uncontrolled diabetic. She is currently on vancomycin and Rocephin. Imaging studies are detailed below. In addition to all this she notes that well she had been walking recently she felt like her left ankle was rolling over in was weak on that side. Review of Systems Constitutional: Constitutional: Denies chills, Denies fever(s) and Denies night sweats Eyes: Eyes: Denies change in vision ENT: Reports Normal hearing present Cardiovascular: Cardiovascular: Denies chest pain and Denies dyspnea on exertion Respiratory: Respiratory: Denies dyspnea on exertion Gastrointestinal: Gastrointestinal: Denies abdominal pain Genitourinary: Genitourinary: Denies dysuria Musculoskeletal: Musculoskeletal: Reports as per HPI Integumentary/Breasts: Skin/Breast: Denies new lesions Neurologic: Reports Normal hearing present and Denies confusion Psychiatric: Psychiatric: Denies confusion Hematologic/Lymphatic: Hematologic/Lymphatic: Denies easy bleeding PMFSH Past Medical History Medical History Diabetes mellitus, new onset No pertinent past medical history Surgical History Surgical History S/P cholecystectomy Family History Family History Father Diabetes mellitus COPD (chronic obstructive pulmonary disease) Hypertension Mother H/O: hysterectomy Social History Social History Social History: Remote tobacco use history. She drinks 2-3 alcoholic drinks per month. She has dogs at home. Denies history of drug use. Full code. She nominates her to be the individual would make medical decisions for her if she is unable. Smoking packs per day: 0.5 Smoking cigarettes per day: 10.0 Years smoked: 4 Smoking pack-years: 2.00 Smoking status: Former smoker Tobacco type: cigarettes Second hand tobacco smoke exposure: Yes Drinks per week: 2 Substance use: never Lack of Transportation: No Lack of Food: Never True Current Housing: I Have Housing Concerned About Future Housing: No Difficulty Paying Gas/Electric Bills: No Difficulty Paying for Meds: No Currently Unemployed
[2023-04-17 12:04] LABS: Glucose Point of Care 273 mg/dl (65-105)
--- NOTE | 2023-04-17 14:48 | PC.NURSE ---
Spoke with LILIA Franklin from [facility] who reports patient has been accepted to [facility] to a medical floor. Requested face sheet be faxed to [phone].
[2023-04-17] MEDS: LOSARTAN POTASSIUM 12.5 MG TABLET PO (15:19)
[2023-04-17] MEDS: SODIUM CHLORIDE 0.9% IV 1,000 ML 50 ML IV CONT ×2 (15:19→20:55)
[2023-04-17] MEDS: ENOXAPARIN 40 MG/0.4 ML SYRINGE SUB-Q (15:19)
[2023-04-17 17:53] LABS: Glucose Point of Care 235 mg/dl (65-105)
[2023-04-17 20:43] LABS: Glucose Point of Care 315 mg/dl (65-105)
[2023-04-17] MEDS: cefTRIAXone 2 GM/NS 100 ML 2 GM/100 ML BAG IVPB (20:55)
[2023-04-17] MEDS: INSULIN GLARGINE (*BKC) 100 UNITS/ML 52 UNITS SUB-Q (20:56)
[2023-04-18] VITALS (17 sets, daily range): BP systolic 155–188; BP diastolic 70–81; PULSE 88–100; RESP 16–22; TEMP 36.2–36.8; O2SAT 95–97; BMI 38.0
--- NOTE | 2023-04-18 | ECHO_ITS ---
Patient Info Name: Cami Tapia Age: 62 years : 1960 Gender: Female Ht: 66 in Wt: 205 lbs BSA: 2.12 m2 HR: 88 bpm BP: 188 / 77 mmHg Heart Rhythm: Sinus Rhythm Technical Quality: Good Exam Date: 04/18/2023 10:35 AM Exam Location: Echo Lab Patient Status: Inpatient Admit Date: 04/16/2023 Staff Ordering Physician: Pb Matamoros MD Motor Vehicle License Clerk: Indira Haley RDCS Attending Provider: Santino Peña MD Exam Type: CA echo doppler w bubble study Study Info Indications - embolic CVA in the interm Complete two-dimensional, color flow and Doppler transthoracic echocardiogram is performed with agitated saline. Contrast/Agitated Saline Contrast/Ag. Saline: Agitated Saline Amount: 20.00 ml Summary 1. Left ventricular chamber dimension is normal. 2. Left ventricular systolic function is normal, estimated at 65-70%. 3. There is mildly increased left ventricular wall thickness. 4. The left ventricular diastolic function is grade I diastolic dysfunction. 5. Right ventricular systolic function is normal. 6. Intact interatrial septum visualized by color flow and agitated saline imaging. The bubble study is negative. 7. There is mild mitral valve regurgitation. 8. There is trace tricuspid valve regurgitation. 9. There is trace pulmonic regurgitation. 10. There is trivial anterior pericardial effusion. 11. No valvular vegetations noted on this study, however, cannot rule out. Left Ventricle Left ventricular chamber dimension is normal. Left ventricular systolic function is normal, estimated at 65-70%. There is mildly increased left ventricular wall thickness. The left ventricular diastolic function is grade I diastolic dysfunction. Right Ventricle Right ventricular chamber dimension is normal. Right ventricular systolic function is normal. Left Atria Left atrial chamber dimension is normal. Right Atria Right atrial chamber dimension is normal. Atrial Septum Intact interatrial septum visualized by color flow and agitated saline imaging. The bubble study is negative. Aortic Valve The aortic valve is probable trileaflet. There is no aortic valve stenosis. There is no aortic valve regurgitation. There is moderate aortic valve calcification. Pulmonic Valve The pulmonic valve is not well visualized. There is trace pulmonic regurgitation. Mitral Valve There is mild mitral valve regurgitation. The mitral valve annulus is mildly calcified. Tricuspid Valve There is trace tricuspid valve regurgitation. Pericardium/Pleural There is trivial anterior pericardial effusion. Inferior Vena Cava Normal inferior vena cava with >50% collapse upon inspiration consistent with normal right atrial pressure, 3 mmHg. Aorta The aortic root size at the sinus of Valsalva is normal. Left Ventricular Outflow Tract Name Value Normal LVOT 2D LVOT Diameter 2.1 cm LVOT Doppler LVOT Peak Gradient 5 mmHg LVOT Mean Gradient 4 mmHg LVOT VTI 27 cm LVOT VTI/AV VTI Ratio 1.0 LVOT Stroke Volume 96 ml LVOT CO
[2023-04-18 00:31] LABS: Glucose Point of Care 272 mg/dl (65-105)
[2023-04-18 04:36] LABS: Basophils Absolute Auto 0.1 K/mm3 (0.0-0.1); Basophils Percent Auto 0.8 % (0.2-1.2); Eosinophils Percent Auto 0.2 % (0-4.4); Hematocrit 30.2 % (37.0-47.0); Hemoglobin 10.2 g/dL (12.0-15.0); Immature Granulocyte Absolute 0.48 K/mm3 (0.00-0.031); Immature Granulocyte Percent A 3.3 % (0-0.5); Lymphocytes Absolute Auto 2.35 K/mm3 (0.9-3.2); Lymphocytes Percent Auto 16.3 % (18.3-44.2); Mean Corpuscular HGB Conc 33.8 g/dl (32-36); Mean Corpuscular Hemoglobin 29.1 pg (26-34); Mean Corpuscular Volume 86.3 fl (80-100); Mean Platelet Volume 10.4 fl (7.4-10.4); Monocytes Absolute Auto 0.9 K/mm3 (0.1-0.6); Monocytes Percent Auto 6.4 % (2.6-8.5); Neutrophils Absolute Auto 10.5 K/mm3 (1.3-6.7); Platelet Count Result 317 k/mm3 (150-375); Red Cell Distribution Width 14.4 % (11.5-14.5); White Blood Count 14.4 K/mm3 (4.5-10.0)
[2023-04-18 04:56] LABS: Vancomycin Trough 12.3 ug/mL (10.0-20.0)
[2023-04-18 04:57] LABS: Alanine Aminotransferase 19 U/L (6-35); Albumin Level 2.3 g/dL (3.5-5.1); Alkaline Phosphatase 123 U/L (38-126); Anion Gap 8 mmol/L (8-16); Aspartate Amino Transferase 33 U/L (14-36); Bilirubin,Total 0.8 mg/dL (0.2-1.3); Blood Urea Nitrogen 13 mg/dL (7-17); Calcium 7.7 mg/dL (8.4-10.2); Carbon Dioxide 21 mmol/L (22-30); Chloride 98 mmol/L (98-107); Estimated CRCL calculation 123 ml/min; Estimated Glomerular Filt Rate > 60; Glucose 221 mg/dL (65-110); Phosphorus 2.4 mg/dL (2.5-4.5); Potassium 3.3 mmol/L (3.4-5.0); Sodium 127 mmol/L (137-145)
[2023-04-18] MEDS: INSULIN ASPART (*BKC) 100 UNITS/ML SUB-Q (08:32)
[2023-04-18] MEDS: INSULIN ASPART (*BKC) 100 UNITS/ML 10 UNITS SUB-Q ×3 (08:32→18:05)
[2023-04-18] MEDS: LOSARTAN POTASSIUM 25 MG TABLET PO (08:35)
[2023-04-18] MEDS: ENOXAPARIN 40 MG/0.4 ML SYRINGE SUB-Q (08:35)
[2023-04-18] MEDS: ASPIRIN 81 MG CHEWABLE TABLET PO (08:35)
[2023-04-18] MEDS: amLODIPine BESYLATE 5 MG TABLET 10 MG PO (08:35)
[2023-04-18] MEDS: TOLNAFTATE 1% POWDER 45 GM BTL 1 APPLIC TOPICAL ×2 (08:36→20:05)
[2023-04-18 08:51] LABS: Glucose Point of Care 235 mg/dl (65-105)
--- NOTE | 2023-04-18 09:55 | PM.IMPN ---
Progress Note: A&P Assessment and Plan (1) Septicemia: Code(s): A41.9 - Sepsis, unspecified organism Status: Acute Assessment and Plan: Patient presents with weakness and found to have symptoms of sepsis. Blood cultures have returned positive. Source most likely related to cellulitis with septic arthritis and fasciitis. BCx 04/15: Group B Strep in all 4 bottles. UCx 04/15: negative Left shoulder 04/16: Group B Strep BCx 04/17: pending Started on Rocephin on admission. Rocephin dose advanced to 2gm and Vancomycin added 04/16 White count is improving. Given that endocarditis is on the differential, will advance to Rocephin 2gm Q12h today Continue IV abx. (2) CVA (cerebral vascular accident): Code(s): I63.9 - Cerebral infarction, unspecified Status: Acute Assessment and Plan: Patient with L>R sided weakness concerning for CVA vs inflammatory myelopathy given her recent vaccines. However family does state that she was having weakness 6 weeks ago which predates the vaccines CT head 04/15 showing right basal ganglia calcification. ASA added. Brain MRI 04/16 showing multifocal punctate area of restricted diffusion likely representing focal infarcts likely embolic. C-spine MRI 04/16 showing moderate cervical spondylosis with no abnormally enhancing lesions in the cord Neuro consulted. Cardiology consulted for possible CHRISTOPHER given concern for SBE but on hold since transfer being arranged. Plan to transfer to [place]. Will proceed with surface Echo in the interim (3) Septic arthritis: Code(s): M00.9 - Pyogenic arthritis, unspecified Status: Acute Assessment and Plan: Patient underwent US guided aspiration of the left shoulder joint 04/16. Able to retrieve 1.5mL of bloody, purulent fluid concerning for septic arthritis. No lab work but gram stain positive for gram positive cocci in anaerobic culture. CT left shoulder showing tissue gas in the sub scapular region, the deltoid, the pectoralis, and tracking into the partially imaged biceps. Discussed the case with orthopedics who recommended transfer to a tertiary care center. Left UE doppler 04/15 was negative for DVT Concern for fasciitis. Spoke with Dr. Marcus Wheat who graciously accepted the patient in transfer. Waiting for bed to become available. (4) Cellulitis: Qualifiers: Laterality: left Site of cellulitis: extremity Site of cellulitis of extremity: upper extremity Qualified Code(s): L03.114 - Cellulitis of left upper limb Code(s): L03.90 - Cellulitis, unspecified Status: Acute Assessment and Plan: Patient was the left upper arm cellulitis felt to be the source of her bacteremia. She denies that she received the vaccines in the left arm. Clinically better Treatment as above. (5) Diabetes mellitus, new onset: Code(s): E11.9 - Type 2 diabetes mellitus without complications Status: Acute Assessment and Plan: Glucose was 610 with BHO3.5, bicarb 19 and AG 19. A1c 11.2. Possible DKA but also with lactic acidosis. Patient with newly diagnosed diabetes. She has had considerable weight loss with complaints of poor appetite and early satiety. Patient was treated with IV insulin and IV fluids with improvement She was started on Lantus and mealtime Novolog. Continue AccuCheks covering with sliding scale. Hypoglycemia protocol available as needed. Glucose still elevated but better overall. Advance mediations to control glucose (6) Acute dehydration: Code(s): E86.0 - Dehydration Status: Acute Assessment and Plan: Related to the uncontrolled diabetes. Fluid positive. Stop IV fluids. (7) Hyponatremia: Code(s): E87.1 - Hypo-osmolality and hyponatremia Status: Acute Assessment and Plan: Sodium 124 on admission related to the severe hyperglycemia. This has improved but remains in the 120's. Continue to follow. (8) Elevated bl
[2023-04-18 12:06] LABS: Glucose Point of Care 151 mg/dl (65-105)
[2023-04-18] MEDS: POTASSIUM CHLORIDE 20 MEQ ER TABLET 40 MEQ PO (12:35)
[2023-04-18] MEDS: FUROSEMIDE INJ 40 MG/4 ML VIAL IV PUSH (12:35)
[2023-04-18] MEDS: cefTRIAXone 2 GM/NS 100 ML 2 GM/100 ML BAG IVPB ×2 (12:38→23:32)
[2023-04-18 17:17] LABS: Glucose Point of Care 183 mg/dl (65-105)
[2023-04-18] MEDS: INSULIN GLARGINE (*BKC) 100 UNITS/ML 58 UNITS SUB-Q (20:02)
[2023-04-18 20:22] LABS: Glucose Point of Care 220 mg/dl (65-105)
[2023-04-19] VITALS (13 sets, daily range): BP systolic 162–179; BP diastolic 68–87; PULSE 75–97; RESP 20–22; TEMP 36.1–37; O2SAT 93–96
[2023-04-19 05:30] LABS: Basophils Absolute Auto 0.1 K/mm3 (0.0-0.1); Basophils Percent Auto 0.5 % (0.2-1.2); Eosinophils Percent Auto 0.3 % (0-4.4); Hematocrit 32.1 % (37.0-47.0); Hemoglobin 10.7 g/dL (12.0-15.0); Immature Granulocyte Absolute 0.56 K/mm3 (0.00-0.031); Lymphocytes Absolute Auto 2.53 K/mm3 (0.9-3.2); Lymphocytes Percent Auto 17.9 % (18.3-44.2); Mean Corpuscular HGB Conc 33.3 g/dl (32-36); Mean Corpuscular Hemoglobin 29.1 pg (26-34); Mean Corpuscular Volume 87.2 fl (80-100); Mean Platelet Volume 10.5 fl (7.4-10.4); Monocytes Percent Auto 7.2 % (2.6-8.5); Neutrophils Absolute Auto 9.9 K/mm3 (1.3-6.7); Neutrophils Percent Auto 70.1 % (45.5-73.1); Platelet Count Result 310 k/mm3 (150-375); Red Blood Count 3.68 M/mm3 (4.2-5.4); Red Cell Distribution Width 14.4 % (11.5-14.5); White Blood Count 14.1 K/mm3 (4.5-10.0)
[2023-04-19 05:41] LABS: Alanine Aminotransferase 22 U/L (6-35); Albumin Level 2.3 g/dL (3.5-5.1); Alkaline Phosphatase 115 U/L (38-126); Anion Gap 7 mmol/L (8-16); Aspartate Amino Transferase 37 U/L (14-36); Bilirubin,Total 0.8 mg/dL (0.2-1.3); Blood Urea Nitrogen 11 mg/dL (7-17); Calcium 7.7 mg/dL (8.4-10.2); Carbon Dioxide 26 mmol/L (22-30); Chloride 96 mmol/L (98-107); Estimated CRCL calculation 104 ml/min; Estimated Glomerular Filt Rate > 60; Glucose 154 mg/dL (65-110); Phosphorus 3.6 mg/dL (2.5-4.5); Potassium 3.3 mmol/L (3.4-5.0); Sodium 129 mmol/L (137-145)
[2023-04-19] MEDS: CALCIUM CARBONATE (TUMS) 500 MG (200 MG ELEMENTAL) PO (06:05)
[2023-04-19 08:13] LABS: Glucose Point of Care 214 mg/dl (65-105)
[2023-04-19] MEDS: ENOXAPARIN 40 MG/0.4 ML SYRINGE SUB-Q (08:26)
[2023-04-19] MEDS: LOSARTAN POTASSIUM 25 MG TABLET PO (08:26)
[2023-04-19] MEDS: amLODIPine BESYLATE 5 MG TABLET 10 MG PO (08:26)
[2023-04-19] MEDS: FAMOTIDINE 10 MG TABLET PO ×2 (08:26→20:25)
[2023-04-19] MEDS: ASPIRIN 81 MG CHEWABLE TABLET PO (08:26)
[2023-04-19] MEDS: INSULIN ASPART (*BKC) 100 UNITS/ML 10 UNITS SUB-Q ×3 (08:27→16:33)
[2023-04-19] MEDS: INSULIN ASPART (*BKC) 100 UNITS/ML SUB-Q (08:28)
[2023-04-19] MEDS: TOLNAFTATE 1% POWDER 45 GM BTL 1 APPLIC TOPICAL ×2 (08:32→20:26)
[2023-04-19] MEDS: cefTRIAXone 2 GM/NS 100 ML 2 GM/100 ML BAG IVPB ×2 (10:00→23:57)
--- NOTE | 2023-04-19 11:08 | WPDNEURCNPN ---
Assessment and Plan Assessment and plan (1) CVA (cerebral vascular accident): Code(s): I63.9 - Cerebral infarction, unspecified Status: Acute (2) Bacteremia: Code(s): R78.81 - Bacteremia Status: Acute (3) Septic arthritis: Code(s): M00.9 - Pyogenic arthritis, unspecified Status: Acute Plan Cami Tapia is a 62 year old female who presented due to generalized weakness for the past six weeks, as well as notable worse LLE weakness. MRI brain was done to investigate LLE weakness, and she was found to have multifocal punctate infarcts involving bilateral hemispheres, concerning for embolic etiology. In the setting of bacteremia, there is specific concern for infectious endocarditis. She has already been started on Aspirin 81mg daily. Based on current recommendations for acute stroke in the setting of infectious endocarditis, antithrombotics are not indicated to reduce risk for thromboembolic complications, but reasonable to continue if there is a separate cardiac indications. Current plans are to perform CHRISTOPHER at [facility] upon transfer. Consult date: 04/19/23 Reason for consult: Stroke HPI: Cami Tapia is a 62 year old female who presented due to generalized weakness for the past six weeks, as well as notable worse LLE weakness. She presented with a number of other complaints such as hematuria, redness/swelling of the LUE. When she presented to [facility] ED her blood glucose was noted to be in the 600s, A1c 11.2. She was also found to have a UTI. She was subsequently started on insulin and IV antibiotics. She had a CT head done on admission which was unrevealing. MRI brain was done to investigate LLE weakness, and she was found to have multifocal punctate infarcts involving bilateral hemispheres, concerning for embolic etiology. CTA brain/carotid was normal. She was also found to have septic joint of the R shoulder, for which she will be transferred to [facility] for surgical debridment. Blood culture is positive for group B streptococuss. Given bacteremia, septic joint, and multifocal infarcts, there is concern for bacterial endocarditis. Cardiology has been consulted but plans for CHRISTOPHER to be done at [facility] since she will be transferred soon. Surface echocardiogram was done in the interim which did not reveal and valvular vegations. Echo was negative for shunt as well. LDL is 47 from this admission. Review of Systems Review of Systems: All systems reviewed & are unremarkable except as noted in HPI and below PMFSH Past Medical History Medical History Diabetes mellitus, new onset No pertinent past medical history Surgical History Surgical History S/P cholecystectomy Family History Family History Father Diabetes mellitus COPD (chronic obstructive pulmonary disease) Hypertension Mother H/O: hysterectomy Social History Social History Social History: Remote tobacco use history. She drinks 2-3 alcoholic drinks per month. She has dogs at home. Denies history of drug use. Full code. She nominates her to be the individual would make medical decisions for her if she is unable. Smoking packs per day: 0.5 Smoking cigarettes per day: 10.0 Years smoked: 4 Smoking pack-years: 2.00 Smoking status: Former smoker Tobacco type: cigarettes Second hand tobacco smoke exposure: Yes Drinks per week: 2 Substance use: never Lack of Transportation: No Lack of Food: Never True Current Housing: I Have Housing Concerned About Future Housing: No Difficulty Paying Gas/Electric Bills: No Difficulty Paying for Meds: No Currently Unemployed: No Education: High School Diploma/GED Difficulty w/ Childcare or Family Care: No Spiritual care concerns: No Meds Home Medications and Mychal
--- NOTE | 2023-04-19 11:33 | PM.IMPN ---
Progress Note: A&P Assessment and Plan (1) Septic arthritis: Code(s): M00.9 - Pyogenic arthritis, unspecified Status: Acute (2) Bacteremia: Code(s): R78.81 - Bacteremia Status: Acute (3) Septicemia: Code(s): A41.9 - Sepsis, unspecified organism Status: Acute (4) Cellulitis: Qualifiers: Laterality: left Site of cellulitis: extremity Site of cellulitis of extremity: upper extremity Qualified Code(s): L03.114 - Cellulitis of left upper limb Code(s): L03.90 - Cellulitis, unspecified Status: Acute (5) UTI (urinary tract infection): Qualifiers: Hematuria presence: with hematuria Urinary tract infection type: acute cystitis Qualified Code(s): N30.01 - Acute cystitis with hematuria Code(s): N39.0 - Urinary tract infection, site not specified Status: Acute (6) Acute dehydration: Code(s): E86.0 - Dehydration Status: Acute (7) Sepsis: Qualifiers: Sepsis acute organ dysfunction status: with acute organ dysfunction Sepsis type: sepsis due to unspecified organism Severe sepsis acute organ dysfunction type: encephalopathy Severe sepsis shock status: without septic shock Qualified Code(s): A41.9 - Sepsis, unspecified organism; R65.20 - Severe sepsis without septic shock; G93.41 - Metabolic encephalopathy Code(s): A41.9 - Sepsis, unspecified organism Status: Acute (8) Left shoulder pain: Qualifiers: Chronicity: acute Qualified Code(s): M25.512 - Pain in left shoulder Code(s): M25.512 - Pain in left shoulder Status: Acute (9) Left-sided weakness: Code(s): R53.1 - Weakness Status: Acute (10) Hyponatremia: Code(s): E87.1 - Hypo-osmolality and hyponatremia Status: Acute (11) Elevated blood pressure reading: Code(s): R03.0 - Elevated blood-pressure reading, without diagnosis of hypertension Status: Acute (12) Diabetes mellitus, new onset: Code(s): E11.9 - Type 2 diabetes mellitus without complications Status: Acute (13) CVA (cerebral vascular accident): Code(s): I63.9 - Cerebral infarction, unspecified Status: Acute Plan (1) Septicemia: ?Code(s): A41.9 - Sepsis, unspecified organism ?Status:?Acute ?Assessment and Plan: Patient presents with weakness and found to have symptoms of sepsis.? Blood cultures have returned positive.? Source most likely related to cellulitis with septic arthritis and fasciitis. BCx 04/15: Group B Strep in all 4 bottles. UCx 04/15: negative Left shoulder 04/16: Group B Strep BCx 04/17: pending Started on Rocephin on admission. Rocephin dose advanced to 2gm and Vancomycin added 04/16 White count is improving.? Patient has a risk of endocarditis, increased Rocephin 2gm Q12h today Continue IV abx. (2) CVA (cerebral vascular accident): ?Code(s): I63.9 - Cerebral infarction, unspecified ?Status:?Acute ?Assessment and Plan: Patient with L>R sided weakness concerning for CVA vs inflammatory myelopathy given her recent vaccines.? However family does state that she was having weakness 6 weeks ago which predates the vaccines CT head 04/15 showing right basal ganglia calcification. ASA added. Brain MRI 04/16 showing multifocal punctate area of restricted diffusion likely representing focal infarcts likely embolic. C-spine MRI 04/16 showing moderate cervical spondylosis with no abnormally enhancing lesions in the cord Neuro consulted. Cardiology consulted for possible CHRISTOPHER given concern for SBE but on hold since transfer being arranged.? Plan to transfer to [place]. Will proceed with surface Echo in the interim (3) Septic arthritis: ?Code(s): M00.9 - Pyogenic arthritis, unspecified ?Status:?Acute ?Assessment and Plan: Patient underwent US guided aspiration of the left shoulder joint 04/16. Able to retrieve 1.5mL of bloody, purulent fluid concerning for sept
[2023-04-19 11:47] LABS: Glucose Point of Care 191 mg/dl (65-105)
[2023-04-19 16:48] LABS: Glucose Point of Care 165 mg/dl (65-105)
[2023-04-19 16:54] LABS: Vancomycin Trough 17.2 ug/mL (10.0-20.0)
[2023-04-19] MEDS: INSULIN GLARGINE (*BKC) 100 UNITS/ML 58 UNITS SUB-Q (20:25)
[2023-04-19 20:35] LABS: Glucose Point of Care 210 mg/dl (65-105)
--- NOTE | 2023-04-19 22:27 | PC.NURSE ---
This patient, Cami Tapia, was transferred to [facility] on 04/19/23 at 2227. Personal belongings sent with patient. Report given to Mariah RODRIGUES. Appropriate documentation sent with patient.
[2023-04-19 22:47] LABS: Glucose Point of Care 343 mg/dl (65-105)
--- NOTE | 2023-04-19 22:50 | PC.NURSE ---
2235: RECEIVED TRANSFER FROM IMU [id number] VIA BED. ALL BELONGINGS BEDSIDE.
[2023-04-19] MEDS: INSULIN ASPART (*BKC) 100 UNITS/ML 8 UNITS SUB-Q (23:59)
[2023-04-20] VITALS (7 sets, daily range): BP systolic 150–163; BP diastolic 70–83; PULSE 80–97; RESP 16–18; TEMP 36.8–37; O2SAT 95–100
[2023-04-20 08:04] LABS: Glucose Point of Care 217 mg/dl (65-105)
[2023-04-20 08:52] LABS: Basophils Absolute Auto 0.1 K/mm3 (0.0-0.1); Basophils Percent Auto 0.5 % (0.2-1.2); Hematocrit 32.7 % (37.0-47.0); Hemoglobin 10.8 g/dL (12.0-15.0); Immature Granulocyte Absolute 0.42 K/mm3 (0.00-0.031); Immature Granulocyte Percent A 2.8 % (0-0.5); Lymphocytes Absolute Auto 2.66 K/mm3 (0.9-3.2); Lymphocytes Percent Auto 17.7 % (18.3-44.2); Mean Corpuscular Volume 87.9 fl (80-100); Mean Platelet Volume 9.9 fl (7.4-10.4); Monocytes Absolute Auto 0.9 K/mm3 (0.1-0.6); Monocytes Percent Auto 5.9 % (2.6-8.5); Neutrophils Percent Auto 73.1 % (45.5-73.1); Platelet Count Result 334 k/mm3 (150-375); Red Blood Count 3.72 M/mm3 (4.2-5.4); Red Cell Distribution Width 14.5 % (11.5-14.5)
[2023-04-20] MEDS: ASPIRIN 81 MG CHEWABLE TABLET PO (08:57)
[2023-04-20] MEDS: amLODIPine BESYLATE 5 MG TABLET 10 MG PO (08:57)
[2023-04-20] MEDS: INSULIN ASPART (*BKC) 100 UNITS/ML 10 UNITS SUB-Q ×3 (08:57→17:21)
[2023-04-20] MEDS: INSULIN ASPART (*BKC) 100 UNITS/ML SUB-Q (08:57)
[2023-04-20] MEDS: FAMOTIDINE 10 MG TABLET PO ×2 (08:57→20:10)
[2023-04-20] MEDS: LOSARTAN POTASSIUM 25 MG TABLET PO (08:57)
[2023-04-20] MEDS: TOLNAFTATE 1% POWDER 45 GM BTL 1 APPLIC TOPICAL ×2 (08:58→20:10)
[2023-04-20] MEDS: ENOXAPARIN 40 MG/0.4 ML SYRINGE SUB-Q (08:58)
[2023-04-20 09:01] LABS: Albumin Level 2.4 g/dL (3.5-5.1); Anion Gap 8 mmol/L (8-16); Blood Urea Nitrogen 11 mg/dL (7-17); Calcium 7.8 mg/dL (8.4-10.2); Carbon Dioxide 24 mmol/L (22-30); Chloride 94 mmol/L (98-107); Estimated CRCL calculation 148 ml/min; Estimated Glomerular Filt Rate > 60; Glucose 199 mg/dL (65-110); Phosphorus 4.2 mg/dL (2.5-4.5); Potassium 3.6 mmol/L (3.4-5.0); Sodium 126 mmol/L (137-145)
--- NOTE | 2023-04-20 09:17 | PC.NURSE ---
RN gave update to [facility] transfer system in regards to patient status
[2023-04-20] MEDS: cefTRIAXone 2 GM/NS 100 ML 2 GM/100 ML BAG IVPB ×2 (12:01→22:38)
[2023-04-20 12:07] LABS: Glucose Point of Care 147 mg/dl (65-105)
--- NOTE | 2023-04-20 15:41 | PM.IMPN ---
Progress Note: A&P Assessment and Plan (1) Septicemia: Code(s): A41.9 - Sepsis, unspecified organism Status: Acute Assessment and Plan: Patient presents with weakness and found to have symptoms of sepsis. Blood cultures have returned positive. Source most likely related to cellulitis with septic arthritis and intramuscular abscesses BCx 04/15: Group B Strep in all 4 bottles. UCx 04/15: negative Left shoulder 04/16: Group B Strep BCx 04/17: NGTD Started on Rocephin on admission. Rocephin dose advanced to 2gm and Vancomycin added 04/16 Given that endocarditis is on the differential, Rocephin advanced to 2gm Q12h White count was improving but higher today probably related to either endocarditis or not having source control from the left shoulder. . Continue IV abx. Waiting for bed at [facility] still. Will contact [facility]. (2) CVA (cerebral vascular accident): Code(s): I63.9 - Cerebral infarction, unspecified Status: Acute Assessment and Plan: Patient with L>R sided weakness concerning for CVA vs inflammatory myelopathy given her recent vaccines. CT head 04/15 showing right basal ganglia calcification. ASA was added. Brain MRI 04/16 showing multifocal punctate area of restricted diffusion likely representing focal infarcts likely embolic. C-spine MRI 04/16 showing moderate cervical spondylosis with no abnormally enhancing lesions in the cord Surface Echo showing EF 65-70% with Grade I diastolic dysfunction. Bubble negative. No valvular vegetations. Neuro consulted and appreciate their input and did not recommend continuing the aspirin so will stop Cardiology consulted for possible CHRISTOPHER given concern for SBE but on hold since transfer being arranged (repeat BCx NGTD). Plan to transfer to tertiary [facility] (3) Septic arthritis: Code(s): M00.9 - Pyogenic arthritis, unspecified Status: Acute Assessment and Plan: Patient underwent US guided aspiration of the left shoulder joint 04/16. Able to retrieve 1.5mL of bloody, purulent fluid concerning for septic arthritis. No lab work but gram stain positive for Group B Strep. CT left shoulder showing tissue gas in the sub scapular region, the deltoid, the pectoralis, and tracking into the partially imaged biceps. Discussed the case with orthopedics who recommended transfer to a tertiary care center. Left UE doppler 04/15 was negative for DVT Concern for intramuscular abscesses. She denies injections into the left shoulder Spoke with Dr. Marcus Wheat who graciously accepted the patient in transfer. Waiting for bed to become available. (4) Cellulitis: Qualifiers: Laterality: left Site of cellulitis: extremity Site of cellulitis of extremity: upper extremity Qualified Code(s): L03.114 - Cellulitis of left upper limb Code(s): L03.90 - Cellulitis, unspecified Status: Acute Assessment and Plan: Patient was the left upper arm cellulitis felt to be the source of her bacteremia. She denies that she received the vaccines in the left arm. Clinically better Treatment as above. (5) Diabetes mellitus, new onset: Code(s): E11.9 - Type 2 diabetes mellitus without complications Status: Acute Assessment and Plan: Glucose was 610 with BHO3.5, bicarb 19 and AG 19. A1c 11.2. Possible DKA but also with lactic acidosis. Patient with newly diagnosed diabetes. She has had considerable weight loss with complaints of poor appetite and early satiety. Patient was treated with IV insulin and IV fluids with improvement She was started on Lantus and mealtime Novolog. Continue AccuCheks covering with sliding scale. Hypoglycemia protocol available as needed. Glucose better overall. Continue to monitor (6) Acute dehydration: Code(s): E86.0 - Dehydration Status: Acute Assessment and Plan: Related to the uncontrolled diabetes. Fluid positive. Stop IV fluids. (7) Hyponatr
[2023-04-20 17:15] LABS: Glucose Point of Care 136 mg/dl (65-105)
[2023-04-20] MEDS: FUROSEMIDE INJ 40 MG/4 ML VIAL IV PUSH (17:21)
[2023-04-20] MEDS: HYDROcodone/acetaminophen (*CRX) 5-325 MG TABLET 1 TAB PO (17:26)
[2023-04-20 17:35] LABS: Creatinine Urine 23.2 mg/dL
[2023-04-20 17:36] LABS: Urea Random Urine 250 MG/DL
[2023-04-20 17:43] LABS: Sodium Urine Random 22 meq/L
[2023-04-20 18:15] LABS: Eosinophil Urine None Seen % (None Seen)
[2023-04-20 18:16] LABS: Urine Eos QC 2nd Tech Confirmed
[2023-04-20] MEDS: INSULIN GLARGINE (*BKC) 100 UNITS/ML 58 UNITS SUB-Q (20:20)
--- NOTE | 2023-04-20 20:24 | PC.NURSE ---
[facility] UPDATED ON PATIENT CONDITION. CURRENTLY CONDITION AND VS STABLE.
[2023-04-20 21:10] LABS: Glucose Point of Care 149 mg/dl (65-105)
[2023-04-21] MEDS: HYDROcodone/acetaminophen (*CRX) 5-325 MG TABLET 1 TAB PO ×2 (05:27→18:42)
[2023-04-21 06:00] VITALS: BP 177/85; PULSE 93; RESP 15; TEMP 36.7; O2SAT 99
[2023-04-21 06:05] LABS: Basophils Absolute Auto 0.1 K/mm3 (0.0-0.1); Basophils Percent Auto 0.5 % (0.2-1.2); Eosinophils Absolute Auto 0.1 K/mm3 (0-0.3); Eosinophils Percent Auto 0.6 % (0-4.4); Hematocrit 31.6 % (37.0-47.0); Hemoglobin 10.3 g/dL (12.0-15.0); Immature Granulocyte Absolute 0.43 K/mm3 (0.00-0.031); Immature Granulocyte Percent A 2.9 % (0-0.5); Immature Platelet Fraction Pct 7.3 % (0.9-11.2); Lymphocytes Absolute Auto 3.11 K/mm3 (0.9-3.2); Lymphocytes Percent Auto 20.7 % (18.3-44.2); Mean Corpuscular HGB Conc 32.6 g/dl (32-36); Mean Corpuscular Hemoglobin 29.3 pg (26-34); Mean Corpuscular Volume 89.8 fl (80-100); Mean Platelet Volume 10.6 fl (7.4-10.4); Monocytes Percent Auto 6.6 % (2.6-8.5); Neutrophils Absolute Auto 10.3 K/mm3 (1.3-6.7); Neutrophils Percent Auto 68.7 % (45.5-73.1); Platelet Count Result 358 k/mm3 (150-375); Red Blood Count 3.52 M/mm3 (4.2-5.4); Red Cell Distribution Width 14.6 % (11.5-14.5); White Blood Count 15.1 K/mm3 (4.5-10.0)
[2023-04-21 06:16] LABS: Albumin Level 2.4 g/dL (3.5-5.1); Anion Gap 4 mmol/L (8-16); Blood Urea Nitrogen 12 mg/dL (7-17); Calcium 7.5 mg/dL (8.4-10.2); Carbon Dioxide 30 mmol/L (22-30); Chloride 94 mmol/L (98-107); Estimated CRCL calculation 103 ml/min; Estimated Glomerular Filt Rate > 60; Glucose 140 mg/dL (65-110); Phosphorus 4.3 mg/dL (2.5-4.5); Potassium 3.5 mmol/L (3.4-5.0); Sodium 128 mmol/L (137-145)
[2023-04-21 08:44] LABS: Glucose Point of Care 191 mg/dl (65-105)
[2023-04-21] MEDS: INSULIN ASPART (*BKC) 100 UNITS/ML 10 UNITS SUB-Q ×3 (08:55→17:25)
[2023-04-21] MEDS: LOSARTAN POTASSIUM 25 MG TABLET PO ×2 (08:55→12:35)
[2023-04-21] MEDS: amLODIPine BESYLATE 5 MG TABLET 10 MG PO (08:55)
[2023-04-21] MEDS: TOLNAFTATE 1% POWDER 45 GM BTL 1 APPLIC TOPICAL ×2 (08:55→20:26)
[2023-04-21] MEDS: FAMOTIDINE 10 MG TABLET PO ×2 (08:55→20:26)
[2023-04-21] MEDS: FUROSEMIDE INJ 40 MG/4 ML VIAL IV PUSH (08:56)
[2023-04-21] MEDS: ENOXAPARIN 40 MG/0.4 ML SYRINGE SUB-Q (08:56)
[2023-04-21] MEDS: cefTRIAXone 2 GM/NS 100 ML 2 GM/100 ML BAG IVPB (10:38)
--- NOTE | 2023-04-21 11:02 | PM.IMPN ---
Progress Note: A&P Assessment and Plan (1) Septicemia: Code(s): A41.9 - Sepsis, unspecified organism Status: Acute Assessment and Plan: Patient presents with weakness and found to have symptoms of sepsis. Blood cultures have returned positive. Source most likely related to cellulitis with septic arthritis and intramuscular abscesses BCx 04/15: Group B Strep in all 4 bottles. UCx 04/15: negative Left shoulder 04/16: Group B Strep BCx 04/17: NGTD Started on Rocephin on admission. Rocephin dose advanced to 2gm and Vancomycin added 04/16 Given that endocarditis is on the differential, Rocephin advanced to 2gm Q12h White count stable 14-15K probably related to either endocarditis or not having source control from the left shoulder and/or possible abscess in the left UE Continue IV abx but will stop Vancomycin and change to high dose PCN now. GenSurg for possible I&D for left UE Talk with Cards about CHRISTOPHER to exclude endocarditis. Waiting for bed at tertiary care center still. (2) CVA (cerebral vascular accident): Code(s): I63.9 - Cerebral infarction, unspecified Status: Acute Assessment and Plan: Patient with L>R sided weakness concerning for CVA vs inflammatory myelopathy given her recent vaccines. CT head 04/15 showing right basal ganglia calcification. ASA was added. Brain MRI 04/16 showing multifocal punctate area of restricted diffusion likely representing focal infarcts likely embolic. C-spine MRI 04/16 showing moderate cervical spondylosis with no abnormally enhancing lesions in the cord Surface Echo showing EF 65-70% with Grade I diastolic dysfunction. Bubble negative. No valvular vegetations. Neuro consulted and appreciate their input and did not recommend continuing the aspirin so will stop Cardiology consulted for possible CHRISTOPHER given concern for SBE but on hold since transfer being arranged (repeat BCx NGTD). Discuss CHRISTOPHER since no beds available. Plan to transfer to tertiary care center (3) Septic arthritis: Code(s): M00.9 - Pyogenic arthritis, unspecified Status: Acute Assessment and Plan: Patient underwent US guided aspiration of the left shoulder joint 04/16. Able to retrieve 1.5mL of bloody, purulent fluid concerning for septic arthritis. No lab work but gram stain positive for Group B Strep. CT left shoulder showing tissue gas in the sub scapular region, the deltoid, the pectoralis, and tracking into the partially imaged biceps. Discussed the case with orthopedics who recommended transfer to a tertiary care center. Left UE doppler 04/15 was negative for DVT Concern for intramuscular abscesses. She denies injections into the left shoulder Talk with ortho about a joint wash out Waiting for bed to become available. (4) Cellulitis: Qualifiers: Laterality: left Site of cellulitis: extremity Site of cellulitis of extremity: upper extremity Qualified Code(s): L03.114 - Cellulitis of left upper limb Code(s): L03.90 - Cellulitis, unspecified Status: Acute Assessment and Plan: Patient was the left upper arm cellulitis felt to be the source of her bacteremia. She denies that she received the vaccines in the left arm. Cellulitis much improved but no coalesced into possible abscess. Edema better Repeat LUE doppler Treatment as above. (5) Diabetes mellitus, new onset: Code(s): E11.9 - Type 2 diabetes mellitus without complications Status: Acute Assessment and Plan: Glucose was 610 with BHO3.5, bicarb 19 and AG 19. A1c 11.2. Possible DKA but also with lactic acidosis. Patient with newly diagnosed diabetes. She has had considerable weight loss with complaints of poor appetite and early satiety. Patient was treated with IV insulin and IV fluids with improvement She was started on Lantus and mealtime Novolog. The patient's blood glucose was reviewed on 04/21 Glucose remains reasonably well controlled. Continue Accu
[2023-04-21 11:05] VITALS: BMI 34.7
[2023-04-21 12:03] LABS: Glucose Point of Care 283 mg/dl (65-105)
[2023-04-21] MEDS: INSULIN ASPART (*BKC) 100 UNITS/ML SUB-Q (12:30)
[2023-04-21 12:35] VITALS: BP 157/74
--- NOTE | 2023-04-21 12:52 | PM.CNGS ---
Assessment and Plan Assessment and plan (1) Septic arthritis: Code(s): M00.9 - Pyogenic arthritis, unspecified Status: Acute Assessment and Plan: Septic left shoulder with CT suggesting intramuscular abscesses. Orthopedics recommended transfer to tertiary care facility for surgical intervention. There is a small raised erythematous area that is more superficial on the left anterior upper arm noted on exam. Continue IV antibiotics for now. I discussed the patient's case and plan of care with Dr. Duque. He will discuss the case with the Hospitalist. Awaiting bed placement. (2) Sepsis: Qualifiers: Sepsis acute organ dysfunction status: with acute organ dysfunction Sepsis type: sepsis due to unspecified organism Severe sepsis acute organ dysfunction type: encephalopathy Severe sepsis shock status: without septic shock Qualified Code(s): A41.9 - Sepsis, unspecified organism; R65.20 - Severe sepsis without septic shock; G93.41 - Metabolic encephalopathy Code(s): A41.9 - Sepsis, unspecified organism Status: Acute Assessment and Plan: Continue IV antibiotics, awaiting transfer (3) Bacteremia: Code(s): R78.81 - Bacteremia Status: Acute Assessment and Plan: Continue IV antibiotics (4) Diabetes mellitus, new onset: Code(s): E11.9 - Type 2 diabetes mellitus without complications Status: Acute (5) CVA (cerebral vascular accident): Code(s): I63.9 - Cerebral infarction, unspecified Status: Acute (6) Hyponatremia: Code(s): E87.1 - Hypo-osmolality and hyponatremia Status: Acute Plan I have discussed the patient's case and plan of care with Dr. Duque. History of Present Illness Consult details Consult date: 04/21/23 Reason for consult: other (Possible left upper arm abscess) Requesting physician: Pb Matamoros MD Narrative: This is a 62-year-old woman who we have been asked to see in surgical consultation for left upper extremity abscess. She presented to the ER 6 days ago with complaints of generalized weakness. She reports developing left shoulder soreness a few weeks ago while dog sitting. She denies any trauma or injury to the left shoulder. She denies lifting anything heavy. She denies any recent surgeries or wounds to the left upper extremity. Her soreness progressive became gradually more of a throbbing pain in the past few weeks. A few days prior to admission, she also reports cognitive difficulties and what sounds like apraxia. This progressed to the point she was unable to vaccine specialist the shower and her called EMS. Workup in the ED showed CT head with no acute findings. Negative left upper extremity venous doppler. Chest x-ray negative. UA suggesting UTI. Labs showed leukocytosis, hyponatremia, hyperglycemia, and lactic acid 2.6. She has not seen a physician since 2013. Hgb A1c checked and was 11.2. She was admitted and started on IV antibiotics and treated for her hyperglycemia. Brain MRI showed multifocal punctate areas of restricted diffusion likely representing focal infarcts, with embolic etiology. Blood cultures also positive for group B streptococcus. Left shoulder CT obtained and showed findings concerning for intramuscular abscesses involving the left shoulder musculature likely spreading from septic joint. She had a left shoulder joint aspiration in Radiology yielding only 1.5 mL of fluid sent for culture that also grew group B strep. Orthopedics was consulted and recommended transfer to tertiary care facility. She has been awaiting bed transfer on IV antibiotics. WBC staying steady between 14-15 over the past few days. She is seen on the medical floor. She feels her swelling has improved some in the left upper extremity to the point that she now has some increased range of motion of the left arm. She reports having a COVID vaccine about 2-3 weeks before she started having any shoulder symptoms and this was in the right arm,
[2023-04-21 13:54] VITALS: BP 154/61; PULSE 94; RESP 18; TEMP 36.4; O2SAT 98
--- NOTE | 2023-04-21 14:04 | PM.PNCARD ---
Progress Note: A&P Assessment and Plan (1) Sepsis: Qualifiers: Sepsis acute organ dysfunction status: with acute organ dysfunction Sepsis type: sepsis due to unspecified organism Severe sepsis acute organ dysfunction type: encephalopathy Severe sepsis shock status: without septic shock Qualified Code(s): A41.9 - Sepsis, unspecified organism; R65.20 - Severe sepsis without septic shock; G93.41 - Metabolic encephalopathy Code(s): A41.9 - Sepsis, unspecified organism Status: Acute (2) Bacteremia: Code(s): R78.81 - Bacteremia Status: Acute Plan Has bacteremia + brain MRI shows multifocal punctate areas of restricted diffusion likely representing focal infarcts, with embolic etiology. Appropriate indication for CHRISTOPHER to evaluate for infective endocarditis and to rule out intracardiac thrombus. Reviewed the procedure with the patient, including indication for procedure, procedure details, risks vs benefits. Patient is agreeable to proceed. Will plan for CHRISTOPHER tomorrow, 04/22. Subjective Date/time seen: 04/21/23 14:04 Interval history: She is feeling very fatigued today but otherwise has no specific complaints. Review of Systems Review of Systems: All systems reviewed & are unremarkable except as noted in HPI and below (HPI) Exam Const: General: no acute distress HENMT: Mouth: Yes moist mucous membranes Eyes: General: appearance normal, both eyes and all related structures Sclera: sclerae normal Neck: Neck: supple Resp: Effort & Inspection: normal respiratory effort Cardio: Rate: regular rate Rhythm: regular rhythm Skin: General skin exam: normal color Neuro: Speech: normal speech Psych: Mental Status: mental status grossly normal Affect: normal affect Objective Data Vital Signs Vital Signs: Vital Signs - 24 hr 04/20/23 19:49 04/20/23 20:00 04/21/23 06:00 Temperature 36.9 C 36.7 C Pulse Rate 97 93 Respiratory Rate 16 15 Blood Pressure 155/70 H 177/85 H Pulse Oximetry 95 99 Oxygen Delivery Room Air 04/21/23 08:57 04/21/23 12:35 04/21/23 12:59 Temperature Pulse Rate Respiratory Rate Blood Pressure 157/74 H Pulse Oximetry Oxygen Delivery Room Air Room Air 04/21/23 13:54 Temperature 36.4 C Pulse Rate 94 Respiratory Rate 18 Blood Pressure 154/61 H Pulse Oximetry 98 Oxygen Delivery Intake/Output Intake/Output: Intake & Output 04/18/23 04/19/23 04/20/23 04/21/23 23:59 23:59 23:59 23:59 Intake Total 3780 3140 2470 1680 Output Total 4650 1300 2300 800 Balance -870 1840 170 880 Meds/Results Medications: Active Medications Generic Name Dose Route Start Last Admin Trade Name Freq PRN Reason Stop Dose Admin Acetaminophen 650 mg 04/20/23 15:58 Acetaminophen 325 Mg Tablet PO Q6H PRN Mild Pain (1-3) or Fever Hydrocodone Bitart/Acetaminophen 1 tab 04/20/23 15:58 04/21/23 05:27 Hydrocodone/Acetaminophen (*Crx) 5-325 Mg Tablet PO 1 tab Q6H PRN Administration Pain Rated 4-6 Amlodipine Besylate 10 mg 04/17/23 09:00 04/21/23 08:55 Amlodipine Besylate 5 Mg Tablet PO 10 mg QAM JESSICA Administration Calcium Carbonate 200 mg 04/19/23 05:25 04/19/23 06:05 Calcium Carbonate (Tums) 500 Mg (200 Mg Elemental) PO 200 mg Q6H PRN Administration Indigestion Dextrose 12.5 gm 04/16/23 00:08 Dextrose 50% 25 Gm/50 Ml Syringe IV PUSH PRN PRN Hypoglycemia Protocol Enoxaparin Sodium 40 mg 04/18/23 09:00 04/21/23 08:56 Enoxaparin 40 Mg/0.4 Ml Syringe SUB-Q 40 mg DAILY JESSICA Administration Famotidine 10 mg 04/19/23 09:00 04/21/23 08:55 Famotidine 10 Mg Tablet PO 10 mg Q12HR JESSICA Administration Glucagon 1 mg 04/16/23 00:08 Glucagon For Inj 1 Mg Vial IM PRN PRN Hypoglycemia Protocol Glucose 15 gm 04/16/23 00:08 Glucose Oral Gel 15 Gm Of Glucse In 37.5 Gm Tube PO PRN PRN Hypoglycemia Protocol Hyd
[2023-04-21 16:54] LABS: Glucose Point of Care 171 mg/dl (65-105)
--- NOTE | 2023-04-21 18:34 | PC.NURSE ---
RN spoke with [facility] transfer center and gave them an update on patient. No available beds at this time.
[2023-04-21 20:00] VITALS: PULSE 94; RESP 18; O2SAT 98
[2023-04-21] MEDS: INSULIN GLARGINE (*BKC) 100 UNITS/ML 58 UNITS SUB-Q (20:23)
[2023-04-21 20:44] LABS: Glucose Point of Care 171 mg/dl (65-105)
[2023-04-21 21:37] VITALS: BP 158/64; PULSE 108; RESP 16; TEMP 36.8; O2SAT 95
[2023-04-22 06:00] VITALS: BP 147/74; PULSE 90; RESP 18; TEMP 36.4; O2SAT 95
[2023-04-22 06:05] LABS: Basophils Absolute Auto 0.1 K/mm3 (0.0-0.1); Basophils Percent Auto 0.3 % (0.2-1.2); Hematocrit 30.1 % (37.0-47.0); Hemoglobin 9.7 g/dL (12.0-15.0); Immature Granulocyte Absolute 0.32 K/mm3 (0.00-0.031); Immature Granulocyte Percent A 1.9 % (0-0.5); Lymphocytes Absolute Auto 2.81 K/mm3 (0.9-3.2); Lymphocytes Percent Auto 16.7 % (18.3-44.2); Mean Corpuscular HGB Conc 32.2 g/dl (32-36); Mean Corpuscular Hemoglobin 28.9 pg (26-34); Mean Corpuscular Volume 89.6 fl (80-100); Mean Platelet Volume 9.8 fl (7.4-10.4); Monocytes Absolute Auto 0.9 K/mm3 (0.1-0.6); Monocytes Percent Auto 5.4 % (2.6-8.5); Neutrophils Absolute Auto 12.7 K/mm3 (1.3-6.7); Neutrophils Percent Auto 75.7 % (45.5-73.1); Platelet Count Result 479 k/mm3 (150-375); Red Blood Count 3.36 M/mm3 (4.2-5.4); Red Cell Distribution Width 14.2 % (11.5-14.5); White Blood Count 16.8 K/mm3 (4.5-10.0)
[2023-04-22 06:30] LABS: Anion Gap 5 mmol/L (8-16); Blood Urea Nitrogen 14 mg/dL (7-17); Calcium 7.5 mg/dL (8.4-10.2); Carbon Dioxide 28 mmol/L (22-30); Chloride 95 mmol/L (98-107); Estimated CRCL calculation 100 ml/min; Estimated Glomerular Filt Rate > 60; Glucose 175 mg/dL (65-110); Potassium 3.6 mmol/L (3.4-5.0); Sodium 128 mmol/L (137-145)
[2023-04-22 08:20] LABS: Glucose Point of Care 158 mg/dl (65-105)
[2023-04-22] MEDS: TOLNAFTATE 1% POWDER 45 GM BTL 1 APPLIC TOPICAL (08:51)
--- NOTE | 2023-04-22 09:34 | PC.NURSE ---
RN gave update on patient to the [facility] transfer center. No beds available at this time.
--- NOTE | 2023-04-22 11:22 | PM.PNGS ---
Progress Note: A&P Assessment and Plan (1) Septic arthritis: Code(s): M00.9 - Pyogenic arthritis, unspecified Status: Acute Assessment and Plan: Septic left shoulder with intramuscular abscesses. Discussed the case again with Dr. Duque today who has also spoke with the Hospitalist. We recommend to continue with Orthopedic's recommendations and work on transferring the patient to a tertiary care facility. Ortho can re-evaluate the patient if needed while awaiting bed placement. We will sign off the case at this time. Please call with any general surgery questions or concerns. (2) Sepsis: Qualifiers: Sepsis acute organ dysfunction status: with acute organ dysfunction Sepsis type: sepsis due to unspecified organism Severe sepsis acute organ dysfunction type: encephalopathy Severe sepsis shock status: without septic shock Qualified Code(s): A41.9 - Sepsis, unspecified organism; R65.20 - Severe sepsis without septic shock; G93.41 - Metabolic encephalopathy Code(s): A41.9 - Sepsis, unspecified organism Status: Acute Plan I have discussed the patient's case and plan of care with Dr. Duque. Subjective Subjective Date/Time Seen: 04/22/23 11:22 Patient reports: no new complaints and afebrile Exam Extrem: Right upper extremity: edema, shoulder/upper arm tenderness, swelling and abnormal ROM (some active ROM but limited d/t swelling and pain) pain with active ROM and pain with passive ROM and Extremity exam: right hand normal capillary refill, vascular exam radial pulse present and normal capillary refill, swelling and other (sensation intact); no unusual warmth Other: Generalized swelling of the left arm and shoulder with firmness at the shoulder joint extending to the upper arm and posteriorly towards the scapula and anteriorly. Skin is all normal in color other than a 5-6 cm raised tender erythematous area of the anterior upper arm with fluctuance. No open wounds or drainage, skin is dry. Objective Data Vital Signs Vital Signs: Vital Signs - 24 hr 04/21/23 12:35 04/21/23 12:59 04/21/23 13:54 Temperature 97.6 F Pulse Rate 94 Respiratory Rate 18 Blood Pressure 157/74 H 154/61 H Pulse Oximetry 98 Oxygen Delivery Room Air 04/21/23 20:00 04/21/23 21:37 04/22/23 06:00 Temperature 98.3 F 97.6 F Pulse Rate 94 108 H 90 Respiratory Rate 18 16 18 Blood Pressure 158/64 H 147/74 H Pulse Oximetry 98 95 95 Oxygen Delivery Room Air 04/22/23 08:55 Temperature Pulse Rate Respiratory Rate Blood Pressure Pulse Oximetry Oxygen Delivery Room Air Intake/Output Intake/Output: Intake & Output 04/19/23 04/20/23 04/21/23 04/22/23 23:59 23:59 23:59 23:59 Intake Total 3140 2470 2570 850 Output Total 1300 2300 800 900 Balance 5622 043 9852 -50 Meds/Results Medications: Active Medications Generic Name Dose Route Start Last Admin Trade Name Freq PRN Reason Stop Dose Admin Acetaminophen 650 mg 04/20/23 15:58 Acetaminophen 325 Mg Tablet PO Q6H PRN Mild Pain (1-3) or Fever Hydrocodone Bitart/Acetaminophen 1 tab 04/20/23 15:58 04/21/23 18:42 Hydrocodone/Acetaminophen (*Crx) 5-325 Mg Tablet PO 1 tab Q6H PRN Administration Pain Rated 4-6 Amlodipine Besylate 10 mg 04/17/23 09:00 04/22/23 08:51 Amlodipine Besylate 5 Mg Tablet PO Not Given QAM JESSICA Calcium Carbonate 200 mg 04/19/23 05:25 04/19/23 06:05 Calcium Carbonate (Tums) 500 Mg (200 Mg Elemental) PO 200 mg Q6H PRN Administration Indigestion Dextrose 12.5 gm 04/16/23 00:08 Dextrose 50% 25 Gm/50 Ml Syringe IV PUSH PRN PRN Hypoglycemia Protocol Enoxaparin Sodium 40 mg 04/18/23 09:00 04/22/23 08:51 Enoxaparin 40 Mg/0.4 Ml Syringe SUB-Q Not Given DAILY JESSICA Famotidine 10 mg 04/19/23 09:00 04/22/23 08:51 Famotidine 10 Mg Tablet PO Not Given Q12HR JESSICA Glucagon 1 mg 04/16/23 00:08 Glucagon For Inj 1
[2023-04-22 12:08] LABS: Glucose Point of Care 126 mg/dl (65-105)
--- NOTE | 2023-04-22 12:11 | WPDANESEPPF ---
Anes - Initial Pre Proc Eval Procedure: Operation Date: 04/22/23 13:00 Proposed Procedures p Trans Esophageal Echo - Fidelina Lorenzana MD Date/Time: 04/22/23 12:11 Surgeon: Santino Peña MD Pre Op Diagnosis: New Onset Diabetes Mellitus/UTI/Cellulitis Patient Data Age: 62 Gender: F Height: 1.68 m Weight: 98.5 kg Last Vital Signs Temp 36.4 C 04/22/23 06:00 Pulse 90 04/22/23 06:00 Resp 18 04/22/23 06:00 BP 147/74 H 04/22/23 06:00 Pulse Ox 95 04/22/23 06:00 O2 Del Method Room Air 04/22/23 08:55 Allergies Allergy/AdvReac Type Severity Reaction Status Date / Time No Known Allergies Allergy Unverified 04/15/23 17:27 Home Medications Medication Instructions Recorded Confirmed Type No Home Medications 04/15/23 04/15/23 History Laboratory Tests 04/21/23 04/21/23 04/22/23 16:45 20:16 05:21 WBC 16.8 H K/mm3 (4.5-10.0) RBC 3.36 L M/mm3 (4.2-5.4) Hgb 9.7 L g/dL (12.0-15.0) Hct 30.1 L % (37.0-47.0) MCV 89.6 fl (80-100) MCH 28.9 pg (26-34) MCHC 32.2 g/dl (32-36) RDW 14.2 % (11.5-14.5) Plt Count 479 H k/mm3 (150-375) MPV 9.8 fl (7.4-10.4) Immature Gran % (Auto) 1.9 H % (0-0.5) Neut % (Auto) 75.7 H % (45.5-73.1) Lymph % (Auto) 16.7 L % (18.3-44.2) Becker % (Auto) 5.4 % (2.6-8.5) Eos % (Auto) 0.0 % (0-4.4) Baso % (Auto) 0.3 % (0.2-1.2) Lymph # (Auto) 2.81 K/mm3 (0.9-3.2) Becker # (Auto) 0.9 H K/mm3 (0.1-0.6) Eos # (Auto) 0.0 K/mm3 (0-0.3) Baso # (Auto) 0.1 K/mm3 (0.0-0.1) Abs Immat Gran (auto) 0.32 H K/mm3 (0.00-0.031) Absolute Neuts (auto) 12.7 H K/mm3 (1.3-6.7) Absolute Nucleated RBC 0.0 K/mm3 (0.0-0.012) Nucleated RBC % 0.0 % (0.0-0.2) Sodium 128 L mmol/L (137-145) Potassium 3.6 mmol/L (3.4-5.0) Chloride 95 L mmol/L (98-107) Carbon Dioxide 28 mmol/L (22-30) Anion Gap 5 L mmol/L (8-16) BUN 14 mg/dL (7-17) Creatinine 0.60 L mg/dL (0.7-1.0) Estim Creat Clear Calc 100 ml/min Estimated GFR > 60 (59 - ) Glucose 175 H mg/dL (65-110) POC Capillary Glucose 171 H mg/dl 171 H mg/dl (65-105) (65-105) Calcium 7.5 L mg/dL (8.4-10.2) 04/22/23 04/22/23 08:09 11:50 WBC RBC Hgb Hct MCV MCH MCHC RDW Plt Count MPV Immature Gran % (Auto) Neut % (Auto) Lymph % (Auto) Becker % (Auto) Eos % (Auto) Baso % (Auto) Lymph # (Auto) Becker # (Auto) Eos # (Auto) Baso # (Auto) Abs Immat Gran (auto) Absolute Neuts (auto) Absolute Nucleated RBC Nucleated RBC % Sodium Potassium Chloride Carbon Dioxide Anion Gap BUN Creatinine Estim Creat Clear Calc Estimated GFR Glucose POC Capillary Glucose 158 H mg/dl 126 H mg/dl (65-105) (65-105) Calcium Patient hx anesthesia problems: none Family hx anesthesia problems: none Results Review: All pre-operative results and documents have been reviewed as part of the pre-operative evaluation. [facility] Past Medical History Medical History (Updated 04/22/23 @ 12:12 by Isaac Ward DO) Diabetes type 2, controlled Hypertension Surgical History Surgical History S/P cholecystectomy Family History Family History Father Diabetes mellitus COPD (chronic obstructive pulmonary disease) Hypertensi
--- NOTE | 2023-04-22 12:27 | PM.IMPN ---
Progress Note: A&P Assessment and Plan (1) Septicemia: Code(s): A41.9 - Sepsis, unspecified organism Status: Acute Assessment and Plan: Patient presents with weakness and found to have symptoms of sepsis. Blood cultures have returned positive. Source most likely related to cellulitis with septic arthritis and intramuscular abscesses BCx 04/15: Group B Strep in all 4 bottles. UCx 04/15: negative Left shoulder 04/16: Group B Strep BCx 04/17: NGTD Started on Rocephin on admission. Rocephin dose advanced to 2gm and Vancomycin added 04/16 Given that endocarditis is on the differential, Rocephin was advanced to 2gm Q12h White count stable 14-16K probably related to either endocarditis or not having source control from the left shoulder Changed to IV high dose PCN on 04/21. Continue IV abx Talked with Cardiology and now with plans for CHRISTOPHER to exclude endocarditis. Waiting for bed at tertiary care center still. (2) CVA (cerebral vascular accident): Code(s): I63.9 - Cerebral infarction, unspecified Status: Acute Assessment and Plan: Patient with L>R sided weakness concerning for CVA vs inflammatory myelopathy given her recent vaccines. CT head 04/15 showing right basal ganglia calcification. ASA was added. Brain MRI 04/16 showing multifocal punctate area of restricted diffusion likely representing focal infarcts likely embolic. C-spine MRI 04/16 showing moderate cervical spondylosis with no abnormally enhancing lesions in the cord Surface Echo showing EF 65-70% with Grade I diastolic dysfunction. Bubble negative. No valvular vegetations. Neuro consulted and appreciate their input and did not recommend continuing the aspirin so this was stop Cardiology consulted for possible CHRISTOPHER given concern for SBE Plan to transfer to tertiary [facility] (3) Septic arthritis: Code(s): M00.9 - Pyogenic arthritis, unspecified Status: Acute Assessment and Plan: Patient underwent US guided aspiration of the left shoulder joint 04/16. Able to retrieve 1.5mL of bloody, purulent fluid concerning for septic arthritis. No lab work but gram stain positive for Group B Strep. CT left shoulder showing tissue gas in the sub scapular region, the deltoid, the pectoralis, and tracking into the partially imaged biceps. Discussed the case with orthopedics who recommended transfer to a tertiary care center. Left UE doppler 04/15 was negative for DVT; Study repeated showing superficial venous thrombosis left basilic vein Concern for intramuscular abscesses. She denies injections into the left shoulder Talked with ortho about a joint wash out again but he did not feel comfortable performing the procedure Spoke with Mikel who felt the left upper arm abscess is connected to the shoulder so no plan to open this up here Waiting for bed to become available. (4) Cellulitis: Qualifiers: Laterality: left Site of cellulitis: extremity Site of cellulitis of extremity: upper extremity Qualified Code(s): L03.114 - Cellulitis of left upper limb Code(s): L03.90 - Cellulitis, unspecified Status: Acute Assessment and Plan: Patient was the left upper arm cellulitis felt to be the source of her bacteremia. She denies that she received the vaccines in the left arm. Cellulitis much improved but now coalesced into possible abscess. Edema better Repeat LUE doppler as above. Treatment as above. (5) Diabetes mellitus, new onset: Code(s): E11.9 - Type 2 diabetes mellitus without complications Status: Acute Assessment and Plan: Glucose was 610 with BHO3.5, bicarb 19 and AG 19. A1c 11.2. Possible DKA but also with lactic acidosis. Patient with newly diagnosed diabetes. She has had considerable weight loss with complaints of poor appetite and early satiety. Patient was treated with IV insulin and IV fluids with improvement She was started on Lantus and mealtime Novolog. The patient
--- NOTE | 2023-04-22 12:47 | WPDTEECHO ---
CHRISTOPHER TransEsophageal Echocardiogram Date of procedure: 04/22/23 Procedure Type: Date of Procedure: 04/22/2023 Brief History Of Present Illness: Patient is a 62 year old female who is referred for CHRISTOPHER to evaluate for infective endocarditis. Procedure In Detail: After verbal and written informed consent was obtained, the patient risks, benefits, and alternatives explained in detail. The patient agreed to proceed with the plan of care as outlined above.?The patient was evaluated at bedside in the [facility] procedure room.?The posterior oropharynx, neck, and jaw angle all within normal limits on examination. Lungs were clear to auscultation. Sedation done by Anesthesia team. The patient was then placed in the appropriate 30 to 45 degree angle supine position at a slight left lateral decubitus position.?Patient was monitored throughout the study with telemetry, oxygen saturation, end-tidal CO2 monitoring, blood pressure, heart rate, and respirations.? The posterior hypopharynx was then locally anesthetized using repeated administration of Hurricaine spray.? After local anesthetic of the posterior hypopharynx was achieved and the oral bite block placed, sedation was administered per the Anesthesia team.? After confirmation of adequate moderate sedation, the transesophageal echocardiogram probe was advanced through the oral bite block into the posterior hypopharynx and into the esophagus easily and without complication.? Multiple, multiplanar echocardiographic images were obtained in multiple standard re- projections.? Color-flow Doppler was utilized in conjunction with this study.? At the conclusion of the study, the transesophageal echocardiogram probe was removed easily and without complication.? The patient tolerated the procedure well without difficulty.? Patient was in sinus rhythm throughout the study. Moderate Sedation/Anesthesia administration: See Anesthesia record. FINDINGS: LEFT VENTRICLE: Size and systolic function were within normal limits RIGHT VENTRICLE:? Size and systolic function within normal limits. LEFT ATRIUM: Normal size. RIGHT ATRIUM: Normal size. INTERATRIAL SEPTUM: ? Interatrial septum is anatomically normal without evidence of shunt with injection of agitated saline. Negative bubble study at rest and with Valsalva. MITRAL VALVE: ? Mitral valve is anatomically normal with preserved leaflet excursion and trace regurgitation. No evidence of valvular vegetation. AORTIC VALVE: The aortic valve is trileaflet with mild calcifications. No regurgitation identified. No evidence of valvular vegetation. TRICUSPID VALVE: Grossly normal without evidence of valvular vegetations. PULMONIC VALVE: Grossly normal without evidence of valvular vegetations. LEFT ATRIAL APPENDAGE: Anatomically normal structure with prominent pectinate muscles without thrombus or vegetation identified. PERICARDIUM: The pericardium was anatomically normal without significant pericardial effusion. Complications: None This dictation may have been done utilizing a voice recognition system.? Attempts have been made to correct errors. However, there may be uncorrected grammatical, spelling, and recognition errors present.
[2023-04-22 12:50] VITALS: BP 120/58; PULSE 88; RESP 22; O2SAT 96
[2023-04-22 13:00] VITALS: BP 138/68; PULSE 90; RESP 21; O2SAT 96
[2023-04-22 13:15] VITALS: BP 144/72; PULSE 90; RESP 21; O2SAT 97
--- NOTE | 2023-04-22 13:43 | PCPTNOTE ---
Patient refused treatment this session. Patient just got back from testing and waiting on lunch to arrive. Patient did not want to do therapy at this time.
[2023-04-22 14:00] VITALS: BP 150/72; PULSE 90; RESP 18; TEMP 36.7; O2SAT 94
--- NOTE | 2023-04-22 14:39 | PC.NURSE ---
RN spoke with [facility] transfer center and gave update on patient status. No available beds at this time.
[2023-04-22] MEDS: LINEZOLID 600 MG TABLET PO (14:53)
[2023-04-22] MEDS: HYDROcodone/acetaminophen (*CRX) 5-325 MG TABLET 1 TAB PO (14:57)
--- NOTE | 2023-04-22 15:20 | PCPTNOTE ---
Attempted to see patient for PT, however patient declined. Patient reported she was too tired from procedure earlier today.
[2023-04-22 17:06] LABS: Glucose Point of Care 233 mg/dl (65-105)
[2023-04-22] MEDS: INSULIN ASPART (*BKC) 100 UNITS/ML SUB-Q (17:38)
[2023-04-22] MEDS: INSULIN ASPART (*BKC) 100 UNITS/ML 10 UNITS SUB-Q (17:39)
--- NOTE | 2023-04-30 06:53 | PM.TDS ---
Transfer Discharge Sum: Prov Provider Date of admission: 04/16/23 08:23 Primary care physician: [facility]ICIAN Admitting clinician: Santino Peña MD Consults: 04/16/23 Wound/ET Consult Routine Reason for Consult:: vagina and buttocks maceration 04/16/23 13:41 Consult to Dietitian Routine Reason for Consult:: new DM Consult to Physician Routine Comment: Dr. Banks was paged @ [phone] (,) Consulting Provider: Quang Banks call center representative/ group to consult: ortho Reason for consultation: left shoulder pain Has provider been notified: Yes 04/16/23 13:50 Consult to Physician Routine Comment: left vmail for Dr. Gaines @[phone] (,) Consulting Provider: Darryn Ganies call center representative/ group to consult: Neuro Reason for consultation: left sided weakness. Has provider been notified: Yes 04/17/23 07:47 Consult to Physician Routine Comment: spoke with exchange @[phone](,) Consulting Provider: Fidelina Lorenzana call center representative/MD group to consult: cardiology Reason for consultation: CHRISTOPHER Has provider been notified: Yes 04/21/23 11:00 Consult to Physician Routine Comment: Called office at 1110 on 04/21/2023 Consulting Provider: Lizzeth Duque call center representative/ group to consult: general surgery Reason for consultation: I&D left upper arm possible abscess Has provider been notified: Yes DS: Admitting Diagnosis Discharge Date 04/22/23 Admitting Diagnosis Weakness DS: Discharge Diagnosis Discharge Diagnosis (1) Septicemia: Code(s): A41.9 - Sepsis, unspecified organism Status: Acute (2) CVA (cerebral vascular accident): Code(s): I63.9 - Cerebral infarction, unspecified Status: Acute (3) Septic arthritis: Code(s): M00.9 - Pyogenic arthritis, unspecified Status: Acute (4) Cellulitis: Qualifiers: Laterality: left Site of cellulitis: extremity Site of cellulitis of extremity: upper extremity Qualified Code(s): L03.114 - Cellulitis of left upper limb Code(s): L03.90 - Cellulitis, unspecified Status: Acute (5) Diabetes mellitus, new onset: Code(s): E11.9 - Type 2 diabetes mellitus without complications Status: Acute (6) Acute dehydration: Code(s): E86.0 - Dehydration Status: Acute (7) Hyponatremia: Code(s): E87.1 - Hypo-osmolality and hyponatremia Status: Acute (8) Elevated blood pressure reading: Code(s): R03.0 - Elevated blood-pressure reading, without diagnosis of hypertension Status: Acute Transfer Discharge Sum: Med Medications Active and Home Medications: Home Medications No Home Medications 04/15/23 [History Confirmed 04/15/23] Transfer Discharge Sum: Hosp Hospital Course Hospital course: Cami Tapia is a 62 year old female who presents with complaints of weakness. Please see H&P for details. (1) Septicemia: Patient presented with weakness and found to have symptoms of sepsis.? Blood cultures returned positive.? Source most likely related to cellulitis with septic arthritis and intramuscular abscesses BCx 04/15: Group B Strep in all 4 bottles. UCx 04/15: negative Left shoulder synovial fluid 04/16: Group B Strep BCx 04/17: Negative Started on Rocephin on admission. Rocephin dose advanced to 2gm and Vancomycin added 04/16 Given that endocarditis was on the differential, Rocephin was advanced to 2gm Q12h White count stable 14-16K felt related to either endocarditis or not having source control from the left shoulder Changed to IV high dose PCN on 04/21. Talked with Cardiology and CHRISTOPHER performed to exclude endocarditis. CHRISTOPHER negative for vegetations. (2) CVA (cerebral vascular accident): Patient with L>R sided weakness concerning for CVA vs inflammatory myelopathy given her recent vaccines. CT head 04/15 showing right basal ganglia calcification. ASA was added. Brain MRI 04/16 showing multifocal punctate area of restricted diffusion likely representing focal i
== END 2023-04-22 18:35 | disposition short-term general hospital (02) | DRG 871 ==
LOC: ANHED 22:02 → ANHIMU 22:49 → ANH3MED 04-20 02:50
PROVIDERS: Emergency Medicine; Internal Medicine; Admitting Provider Internal Medicine; Emergency Provider Physician Assistant; Visit Provider Internal Medicine
PROC: B24BZZ4 Ultrasonography of Heart with Aorta, Transesophageal (ICD-10-PCS; CPT 93312; principal; 2023-04-22 13:00)
DX: A40.1 Sepsis due to streptococcus, group B (principal); I63.9 Cerebral infarction, unspecified; M00.212 Other streptococcal arthritis, left shoulder; L03.114 Cellulitis of left upper limb; N39.0 Urinary tract infection, site not specified; E87.1 Hypo-osmolality and hyponatremia; M60.012 Infective myositis, left shoulder; G81.94 Hemiplegia, unspecified affecting left nondominant side; I82.612 Acute embolism and thrombosis of superficial veins of left upper extremity; B95.1 Streptococcus, group B, as the cause of diseases classified elsewhere; E86.0 Dehydration; E11.65 Type 2 diabetes mellitus with hyperglycemia; K29.70 Gastritis, unspecified, without bleeding; R03.0 Elevated blood-pressure reading, without diagnosis of hypertension; Z87.891 Personal history of nicotine dependence
CPT/HCPCS: 20611; 36415; 36600; 70450; 70496; 70498; 70553; 71046; 72156; 73200; 74177; 80048; 80053; 80061; 80069; 80202; 81001; 81025; 82010; 82375; 82570; 82607; 82746; 82805; 82948; 83036; 83050; 83605; 83690; 83735; 84100; 84300; 84443; 84540; 85025; 85027; 85055; 85610; 85652; 85999; 86140; 87040; 87070; 87075; 87086; 87088; 87147; 87186; 87205; 93306; 93312; 93320; 93325; 93971; 96361; 96365; 96375; 97161; 97166; 99285; A9270; A9577; G0378; J0360; J0696; J1650; J1815; J1940; J2540; J2704; J3370; J3480; J7030; J7040; J7070; Q9967

== ENCOUNTER 2023-12-23 08:00 | Outpatient (RCR) | payer OTHER, SELFPAY ==
--- NOTE | 2023-10-30 09:54 | OTOPEVAL1 ---
Assessment and note entered by Jp San, BINA/Maci, CHT Evaluation Information Assessment Status Evaluation Diagnosis Left arm weakness and pain Subjective Information In March of 2023 patient underwent 2 surgeries on her left shoulder for an infected shoulder . During her hospitalization she had a CVA. She was hospitalized for 6 weeks, s/p inpatient rehab x3 weeks, and she returned home in May. She has not had therapy since May. She reports the left arm has a hard time moving. She reports she has gotten good at not using it . 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 Uses a computer - she states she is able to type, but unable to lift her arm on her own to get it on the desk. She is right handed. reports she has improved to being able to do ADLs independently, she is back to driving, and can get around the store. They report her strength and stamina is reduced. Reported Pain Level Pain Score 5/10, left shoulder Assessment OT Clinical Summary Patient referred to OT with left arm weakness. History includes diagnosis of a septic shoulder which required 2 I&Ds. She presents with a 2 finger breadth subluxed shoulder and grossly 2-/5 shoulder strength. Distally the elbow, forearm, wrist, and hand are WNL. Initiated HEP to work on strengthening of the rotator cuff and educated on positioning to approximate the humeral head in the glenoid fossa. Continued skilled OT indicated to progress therapeutic exercise, manual therapy, HEP progression, and functional strengthening to facilitate optimal strength and function of the left shoulder. Plan of Care Interventions Therapeutic Exercise,Manual Therapy,Neuro Re- education,Therapeutic Activities,Electrical Stimulation OT Services Indicated Yes Treatment Frequency and 2x/week for 8 visits Duration These treatments will address the objective and functional deficits as defined above. The patient will be advanced safely and appropriately in order for the patient to progress towards his/her prior level of function. Additional exercises will be introduced and as well as a comprehensive home exercise program upon discharge, if needed, ?to ensure carryover of functional gains achieved in the clinic. This treatment plan has been reviewed and agreement upon by the patient.
--- NOTE | 2023-10-30 09:55 | OPREHPOC ---
Outpatient Therapy Plan of Care This is a Multidisciplinary Plan of Care that may contain components documented by all disciplines (PT, OT, and ST.) OT Problem 1 OT Problem #1 Knowledge Deficit OT Goal 1 Goal 1. Patient to be independent with instructed materials. Target Visit 8 OT Problem 2 OT Problem #2 Pain OT Goal 1 Goal 1. Patient to be independent with non-medication pain management: - ROM - rest Target Visit 8 OT Problem 3 OT Problem #3 Impaired Strength OT Goal 1 Goal 1. Patient to increase left shoulder strength into planes of flexion, extension, and abduction to 2/ 5. 2. Patient to increase left shoulder strength as demonstrated by improving from 2 to 1 finger breadth subluxation at the GH joint. Target Visit 8
--- NOTE | 2023-11-26 11:48 | OTOPPROG ---
Assessment and note entered by Jp San, BINA/Maci, CHT OT Progress Update 11/26/23 Diagnosis Left arm weakness and pain Subjective Information Patient reports progress in her left shoulder since beginning therapy. She states she is having an easier time reaching the arm forward. For instance, being able to reach for a door knob and reach her hand to her keyboard with minimal assistance with the other hand. She reports she did dishes for the first time in months. She states she is feeling stronger. She reports she continues to have pain in the shoulder. Assessment OT Clinical Summary Patient referred to OT with left arm weakness. History includes diagnosis of a septic shoulder which required 2 I&Ds. OT has been focusing on improving functional strength of the shoulder. She is making progress with OT. Shoulder subluxation improved from 2 finger breadth to 0.5-1 finger breadth. She is improving with shoulder flexion, abduction, and extension. She continues to have a severely weak shoulder and continues to be unable to independently reach forward during ADLs. She is compliant with HEP. Continued skilled OT indicated to progress therapeutic exercise, manual therapy, HEP progression, and functional strengthening to facilitate optimal strength and function of the left shoulder. Plan of Care Interventions Therapeutic Exercise,Manual Therapy,Neuro Re- education,Therapeutic Activities,Electrical Stimulation OT Services Indicated Yes Treatment Frequency and 2x/week for 8 visits Duration These treatments will address the objective and functional deficits as defined above. The patient will be advanced safely and appropriately in order for the patient to progress towards his/her prior level of function. Additional exercises will be introduced and as well as a comprehensive home exercise program upon discharge, if needed, ?to ensure carryover of functional gains achieved in the clinic. This treatment plan has been reviewed and agreement upon by the patient.
--- NOTE | 2023-11-26 11:48 | OPREHPOC ---
Outpatient Therapy Plan of Care This is a Multidisciplinary Plan of Care that may contain components documented by all disciplines (PT, OT, and ST.) OT Problem 1 OT Problem #1 Knowledge Deficit OT Goal 1 Goal 1. Patient to be independent with instructed materials. ---OT POC UPDATE 11/26/23--- 1. Met, continue as HEP is progressed Target Visit 8 OT Problem 2 OT Problem #2 Pain OT Goal 1 Goal 1. Patient to be independent with non-medication pain management: - ROM - rest ---OT POC UPDATE 11/26/23--- 1. Met, continue to treat pain as needed Target Visit 8 OT Problem 3 OT Problem #3 Impaired Strength OT Goal 1 Goal 1. Patient to increase left shoulder strength into planes of flexion, extension, and abduction to 2/ 5. 2. Patient to increase left shoulder strength as demonstrated by improving from 2 to 1 finger breadth subluxation at the GH joint. ---OT POC UPDATE 11/26/23--- 1. ROM and strength is progressing, continue shoulder strengthening 2. Met, progress to no subluxation at the GH joint Target Visit 8
--- NOTE | 2023-12-23 08:41 | OTOPDC ---
Assessment and note entered by Jp San, OTR/Maci, CHT OT D/C Report 12/23/23 Assessment Status Discharge Diagnosis Left arm weakness and pain Subjective Information Patient reports she is continuing to feel stronger in the left upper extremity. She reports less pain, reporting 0/10 at times, and fewer instances of 8/10 pain. She states she continues to need to use her right hand to help the left hand to her keyboard. She states she is having an easier time lifting light objects, such as a glass of water. She continues to have difficulties bringing the glass of water to her mouth with the left hand, however. Patient reports she was fired from her job last week and she no longer has insurance, so this visit will be her last unfortunately. Assessment OT Clinical Summary Patient referred to OT with left arm weakness. History includes diagnosis of a septic shoulder which required 2 I&Ds. OT has been focusing on improving functional strength of the shoulder. OT re-assessment completed today. ROM and strength of the shoulder in the planes of flexion and abduction have remained unchanged this month. She continues to have 1 finger breadth subluxation at the shoulder. Overall she is experiencing less instances of severe pain and some instances of no shoulder pain at all. Unfortunately the patient has lost her insurance and she is needing to be discharged today. Reviewed her HEP and encouraged her to continue daily compliance with the HEP. D/C OT with HEP.
== END 2023-12-23 10:46 | disposition home or self-care (01) ==
LOC: ANHOT 08:00
PROVIDERS: PCP Family Medicine; Visit Provider Family Medicine
DX: M79.602 Pain in left arm (principal); M62.81 Muscle weakness (generalized)
CPT/HCPCS: 97110; 97140; 97166; 97530